=== PATIENT | male | born 1995 | race Caucasian/White ===

== ENCOUNTER → 2019-03-20 09:16 | Outpatient (CLI) | payer BC, SELFPAY ==
[2019-03-20 09:35] LABS: Basophils % 0.4 % (0.1-2.0); Eosinophils % 0.5 % (0.1-12.0); Hematocrit 46.4 % (42.0-52.0); Hemoglobin 15.5 g/dL (14.1-18.0); Lymphocytes # 0.8 K/mm3 (0.7-4.5); Lymphocytes % 15.5 % (10-50); Mean Corpuscular HGB Conc 33.5 g/dL (31.8-35.4); Mean Corpuscular Hemoglobin 34.5 pg (27.0-31.2); Mean Corpuscular Volume 102.8 fl (80-94); Mean Platelet Volume 7.7 fl (7.4-10.4); Monocytes # 0.5 K/mm3 (0.1-1.0); Monocytes % 9.9 % (1.7-9.3); Neutrophils # 3.9 K/mm3 (1.8-7.8); Neutrophils % 73.7 % (37.0-80.0); Platelet Count 176 K/mm3 (142-424); Red Blood Count 4.51 M/mm3 (4.60-6.20); Red Cell Distribution Width 12.8 % (11.5-17.5); White Blood Count 5.2 K/mm3 (4.8-10.8)
[2019-03-20 09:50] LABS: Alanine Aminotransferase 61 U/L (12-78); Albumin Level 4.9 gm/dL (3.4-5.0); Albumin/Globulin Ratio 1.3 (1.1-1.8); Alkaline Phosphatase 69 U/L (46-116); Anion Gap 16.5 mEq/L (5-15); Aspartate Amino Transferase 40 U/L (15-37); Bilirubin,Total 0.7 mg/dL (0.2-1.0); Blood Urea Nitrogen 5 mg/dL (7-18); Calcium 9.5 mg/dL (8.5-10.1); Carbon Dioxide 25 mmol/L (21.0-32.0); Chloride 101 mmol/L (98-107); Creatinine,Serum 0.83 mg/dL (0.70-1.30); Estimated Glomerular Filt Rate 116 ml/min (>60); Free Thyroxine Index 2.4 ug/dL (5.93-13.13); GFR (African American) 140 ML/MIN (>60); Globulin 3.9 gm/dl (1.3-3.2); Glucose 96 mg/dL (74-106); Potassium 4.5 mmoL/L (3.5-5.1); Sodium 138 mmol/L (136-145); T4 (Thyroxine) 7.2 ug/dl (4.7-13.3); Total Protein,Serum 8.8 gm/dL (6.4-8.2); Triiodothryronine (T3) Uptake 33 % (31-39)
== END ==
PROVIDERS: Visit Provider Internal Medicine Adolescent Medicine
DX: F41.0 Panic disorder [episodic paroxysmal anxiety] (principal); R00.2 Palpitations; R51 Headache
CPT/HCPCS: 36415; 80053; 83735; 84436; 84443; 84479; 85025

== ENCOUNTER 2020-09-20 11:22 | Inpatient (IN) | payer BC, SELFPAY ==
[2020-09-20] VITALS (27 sets, daily range): BP systolic 119–166; BP diastolic 65–89; PULSE 77–125; RESP 14–21; TEMP 36.4–43; O2SAT 95–100; BMI 20.9; BMI 19.5
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
[2020-09-20 11:41] LABS: Basophils % 1.1 % (0.1-2.0); Eosinophils % 0.6 % (0.1-12.0); Hematocrit 45.8 % (42.0-52.0); Hemoglobin 14.9 g/dL (14.1-18.0); Lymphocytes # 0.9 K/mm3 (0.7-4.5); Lymphocytes % 30.7 % (10-50); Mean Corpuscular HGB Conc 32.7 g/dL (31.8-35.4); Mean Corpuscular Hemoglobin 34.7 pg (27.0-31.2); Mean Corpuscular Volume 106.3 fl (80-94); Mean Platelet Volume 7.8 fl (7.4-10.4); Monocytes # 0.2 K/mm3 (0.1-1.0); Neutrophils # 1.8 K/mm3 (1.8-7.8); Neutrophils % 59.6 % (37.0-80.0); Platelet Count 185 K/mm3 (142-424); Red Blood Count 4.31 M/mm3 (4.60-6.20); Red Cell Distribution Width 13.1 % (11.5-17.5)
[2020-09-20 11:42] LABS: Chloride 103 mmol/L (98-107)
[2020-09-20 11:43] LABS: Potassium 3.8 mmoL/L (3.5-5.1); Sodium 142 mmol/L (136-145)
[2020-09-20 11:45] LABS: Alanine Aminotransferase 55 U/L (12-78); Albumin Level 4.9 g/dl (3.5-5.0); Albumin/Globulin Ratio 1.7 (1.1-1.8); Alkaline Phosphatase 88 U/L (38-126); Anion Gap 18.8 mEq/L (5-15); Aspartate Amino Transferase 85 U/L (17-59); Bilirubin,Total 0.4 mg/dl (0.2-1.3); Blood Urea Nitrogen 5 mg/dl (9-20); Calcium 8.5 mg/dl (8.4-10.2); Carbon Dioxide 24 mmol/L (22.0-30.0); Creatinine Clearance Estimated 138 mL/min (50-200); Estimated Glomerular Filt Rate 120 ml/min (>60); GFR (African American) 145 ML/MIN (>60); Globulin 2.9 g/dL (1.3-3.2); Glucose 103 mg/dl (74-100); Total Protein,Serum 7.8 g/dl (6.3-8.2)
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
[2020-09-20 11:58] LABS: Microscopic, Urine URINE MICROSCOPIC (MICROSCOPIC)
--- NOTE | 2020-09-20 11:59 | PC.NURSE ---
Pt to rad
[2020-09-20 12:01] LABS: Ethyl Alcohol 473 mg/dl (0-10)
--- NOTE | 2020-09-20 12:02 | PC.NURSE ---
ETOH level is 473 and called to [facility], [employer]
[2020-09-20 12:05] LABS: Appearance,Urine CLEAR (Clear); Bilirubin,Urine Negative (Negative); Blood, Urine Negative (Negative); Color,Urine YELLOW (Yellow); Glucose,Urine (UA) Negative (Negative); Ketones,Urine Negative (Negative); Leukocyte Esterase,Urine Negative (Negative); Nitrate,Urine Negative (Negative); Protein,Urine Negative (Negative); Urobilinogen,Urine 0.2 EU/dl (0.2)
[2020-09-20 12:16] LABS: Squamous Epithelial Cell,Urine Occasional #/hpf (0-5)
[2020-09-20 12:17] LABS: Benzodiazepines Screen,Urine Negative ng/ml (<200)
[2020-09-20 12:18] LABS: Amphetamine/Metha Screen,Urine Negative ng/ml (<1000)
[2020-09-20 12:19] LABS: Barbiturates Screen,Urine Negative ng/ml (<200); Methadone Screen,Urine Negative ng/ml (<300)
[2020-09-20 12:20] LABS: Cannabinoid Screen,Urine Negative ng/ml (<50); Cocaine Screen,Urine Negative ng/ml (<300)
[2020-09-20 12:21] LABS: Opiate Screen,Urine Negative ng/ml (<300)
[2020-09-20 12:22] LABS: Phencyclidine Screen,Urine Negative ng/ml (<25)
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
--- NOTE | 2020-09-20 13:11 | PC.NURSE ---
Pt returned from rad. LEYVA at bedside doing doppler on pt's leg.
--- NOTE | 2020-09-20 13:43 | PC.NURSE ---
Dr Ray speaking with Dr Lara
--- NOTE | 2020-09-20 13:55 | PC.NURSE ---
dr Ray spoke with Dr Alvarez she is calling Dr Barrera to discuss possible admission
--- NOTE | 2020-09-20 14:00 | PC.NURSE ---
Dr Bruce almendarez.
--- NOTE | 2020-09-20 14:06 | PC.NURSE ---
Dr lloyd returned call
[2020-09-20 14:41] LABS: Coronavirus 19 IgG Antibody Negative (Negative); Coronavirus 19 IgM Antibody Negative (Negative)
--- NOTE | 2020-09-20 15:08 | PC.NURSE ---
While adjusting pt's knee immobilizer pt states he is unable to move his toes. Pt states he is not able to move his foot either. notified
--- NOTE | 2020-09-20 15:11 | PC.NURSE ---
Dr Ray speaking with Dr Lara
--- NOTE | 2020-09-20 15:14 | PC.NURSE ---
Dr guzman speaking with Dr Ray again.
--- NOTE | 2020-09-20 16:12 | PC.NURSE ---
Dr Lara at bedside. Surgery team called in.
--- NOTE | 2020-09-20 16:16 | PC.NURSE ---
Called in surgery team at this time. Spoke with Mable Parrish, and Sheila from OR via telephone.
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
--- NOTE | 2020-09-20 16:28 | PC.NURSE ---
Pt complaining of more pain at this time MD aware, he will be ordering more meds.
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
--- NOTE | 2020-09-20 17:26 | P.PN_ITS ---
[facility] Anesthesia Checklist - Structural Data Admitted From: Emergency Dept Planned Operative Procedure/s: fasciotomy rle Consent for Planned Operative Procedure(s) Verified: Yes - Airway Assessment C-Spine Mobility Assessed: Yes TMJ Mobility Assessed: Yes Dentition: Good Dentition - Neurological Assessment Level of Consciousness: Awake, Alert, Appropriate - Anesthesia Plan Anesthesia Risk discussed: Yes Anesthesia Plan: Verified ASA Class: II Anesthesia Type: General [facility] History I have reviewed the patient's past medical history: Yes Medical History: Denies:: Cancer, Chronic Obstructive Pulmonary Disease (COPD), Diabetes Mellitus Type 1, Diabetes Mellitus Type 2, MRSA *Have you ever received a pneumonia vaccine?: No *Have you received a flu vaccine this season?: No Anesthesia experience/problems:: none Amputation: No Fractures: No - *Social History Smoking Status: Never smoker Alcohol Intake: current Alcohol Intake Frequency:: a few times a week Substance Use Type: denies use *Occupational Status:: employed *Travel in the last 8 weeks: None Family Hx:: Non-contributory
[2020-09-20 18:08] LABS: Microscopic,Cath URINE MICROSCOPIC (MICROSCOPIC)
[2020-09-20 18:22] LABS: Appearance,Urine/Cath CLEAR (Clear); Bilirubin,Cath Negative (Negative); Blood, Urine/Cath Negative (Negative); Color,Urine/Cath YELLOW (Yellow); Glucose,Urine/Cath (UA) Negative (Negative); Ketones,Urine/Cath TRACE (Negative); Leukocyte Esterase,Cath Negative (Negative); Nitrate,Cath Negative (Negative); Protein,Urine/Cath Negative (Negative); Specific Gravity, Urine/Cath 1.015 (1.005-1.030); Urobilinogen,Cath 0.2 EU/dl (0.2)
[2020-09-20 18:28] LABS: Amorphous Sediment,Ur/Cath Trace /lpf
--- NOTE | 2020-09-20 19:16 | HMH.ANESI ---
[facility] Anesthesia Record Part I Intake, IV Amount: 1,500 Estimated blood loss (mL): 300 Urine output (mL): 250 Blood Pressure: 150/81 SaO2: 97 Pulse Rate: 114 Respiratory Rate: 14 Temperature: 98.1 F Patient is:: Awake, Stable Stable to PACU at:: 19:15
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
[2020-09-20 19:53] LABS: Magnesium 2.1 mg/dl (1.6-2.3); Phosphorous 4.3 mg/dl (2.5-4.5)
[2020-09-20 20:02] LABS: Barbiturates Screen,Urine Negative ng/ml (<200); Benzodiazepines Screen,Urine Negative ng/ml (<200)
[2020-09-20 20:03] LABS: Amphetamine/Metha Screen,Urine Negative ng/ml (<1000); Cannabinoid Screen,Urine Negative ng/ml (<50)
[2020-09-20 20:04] LABS: Cocaine Screen,Urine Negative ng/ml (<300)
--- NOTE | 2020-09-20 20:04 | PC.NURSE ---
patient up to floor from surgery.
[2020-09-20 20:05] LABS: Methadone Screen,Urine Negative ng/ml (<300); Opiate Screen,Urine Positive ng/ml (<300)
[2020-09-20 20:06] LABS: Phencyclidine Screen,Urine Negative ng/ml (<25)
--- NOTE | 2020-09-20 20:07 | XR_ITS ---
PROCEDURE: XR KNEE RT 2V CLINICAL INDICATION: s/p ex-fix (to see femoral pins) Follow-up external fixation COMPARISON: CR XR TIBIA FIBULA RT 2V from 09/20/2020 FINDINGS: Comminuted inverted v-shaped fracture noted at the proximal tibia extending into the articular surface proximally at the interspinous region. Minimal impaction of the fracture fragments. There is a hematoma fat level within the suprapatellar region. The external fixators are in good position along the distal shaft of the femur. There are numerous skin clips along the proximal tibia. IMPRESSION: Good alignment status post external fixation comminuted proximal tibial fracture Dictated by: Isaac Bonilla MD 09/21/2020 08:44 Isaac Bonilla MD in OV 09/21/2020 08:44
[2020-09-20 20:21] LABS: Activated Partial Thrombo Time 24.5 seconds (23.6-34.0); INR 0.92 (0.9-1.1); Prothrombin Time 10.3 seconds (9.4-11.8)
[2020-09-21] VITALS (13 sets, daily range): BP systolic 110–139; BP diastolic 64–82; PULSE 70–110; RESP 15–20; TEMP 36.6–37.1; O2SAT 95–100; BMI 19.4
--- NOTE | 2020-09-21 03:34 | PC.NURSE ---
MD Barrera contacted early in shift for clarification of medications. Pt is A&O x4. CIWA score is currently 7. He denies any DT's at this time. Severe tremors are present, however, pt has history of tremors. Pt denies any LEON, hallucinations or sensitivities. BP remains stable. HR Tachy. Pt remains afebrile. He has rated his pain to RLE between 8-10 on EXHAUST TENDER scale. RLE elevated. Icepacks in place. DSG has been reinforced. Sanguineous drainage noted. Estimated blood loss after weighing is 249 per Rachel Radford RN. Medications administered per jan. Pt is using incentive spirometer. Call light within reach. Will continue to monitor.
--- NOTE | 2020-09-21 04:51 | PC.NURSE ---
Forehead. Contusion with abrasion
--- NOTE | 2020-09-21 06:00 | PC.NURSE ---
Additional blood loss estimated at 255 ml per Rachel Radford RN
--- NOTE | 2020-09-21 06:17 | PC.NURSE ---
Notified MD Barrera of blood loss. New orders: Type and crossmatch. Place 3 Units of blood on hold
[2020-09-21 06:40] LABS: Chloride 95 mmol/L (98-107); Potassium 4.3 mmoL/L (3.5-5.1); Sodium 129 mmol/L (136-145)
[2020-09-21 06:43] LABS: Anion Gap 16.3 mEq/L (5-15); Blood Urea Nitrogen 5 mg/dl (9-20); Calcium 7.7 mg/dl (8.4-10.2); Carbon Dioxide 22 mmol/L (22.0-30.0); Creatinine Clearance Estimated 192 mL/min (50-200); Estimated Glomerular Filt Rate 167 ml/min (>60); GFR (African American) 202 ML/MIN (>60); Glucose 117 mg/dl (74-100)
[2020-09-21 06:44] LABS: Eosinophils % 0.3 % (0.1-12.0); Lymphocytes # 0.2 K/mm3 (0.7-4.5); Mean Corpuscular HGB Conc 34.1 g/dL (31.8-35.4); Mean Corpuscular Hemoglobin 35.6 pg (27.0-31.2); Mean Corpuscular Volume 104.4 fl (80-94); Mean Platelet Volume 8.1 fl (7.4-10.4); Monocytes # 0.3 K/mm3 (0.1-1.0); Monocytes % 5.3 % (1.7-9.3); Neutrophils # 4.9 K/mm3 (1.8-7.8); Neutrophils % 91.3 % (37.0-80.0); Red Cell Distribution Width 13.4 % (11.5-17.5)
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
[2020-09-21 07:05] LABS: MANUAL DIFFERENTIAL MANUAL DIFFERENTIAL (MANUAL DIFF)
[2020-09-21 07:11] LABS: Hemoglobin 10.5 g/dL (14.1-18.0); Red Blood Count 2.94 M/mm3 (4.60-6.20); White Blood Count 5.4 K/mm3 (4.8-10.8)
[2020-09-21 07:12] LABS: Hematocrit 30.7 % (42.0-52.0); Platelet Count 141 K/mm3 (142-424)
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
--- NOTE | 2020-09-21 08:19 | P.PN_ITS ---
[facility] Anesthesia Record Part II Discharge Time: 19:45 Destination: floor PACU nurse assessment reviewed?: Yes Patient Condition:: Good Anesthesia Complications:: None Swallowing reflex intact?: Yes Cyanosis?: No Blood Pressure: 139/82 Pulse Rate: 98 Temperature: 98.7 F Mental Status: Alert & Oriented Pain level:: 8 Nausea and/or vomitting:: None Intake, IV Amount: 1,500
[2020-09-21 08:28] LABS: Lymphocytes % 4 % (10-50); Monocytes % 2 % (2-9); Neutrophils % 92 % (42-76); Platelet Estimate Normal; RBC Morphology Normal; Total Cells Counted 100
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
[2020-09-21 09:12] LABS: Magnesium 2.2 mg/dl (1.6-2.3)
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
--- NOTE | 2020-09-21 18:22 | PC.NURSE ---
pt has done ok today. vitals have all been stable. pt afebrile. his dressing to RLE has been reenforced multiple times throughout shift d/t bleeding. md guzman is aware. pt id very well with PT today. pt reports he has a high pain tolerance, although rating it a 8-10 on number scale. pt slept a lot today. carbajal draining yellow urine. CIWA scores have been 0800-7, 1200-7, 1600-5. pt did voice he was having itching symptoms this afternoon, he states it was tolerable but wanted something for itching still. md rousseau paged and order Benadryl 25mg q6hr PRN for itching. vss. will cont. to monitor.
[2020-09-22] VITALS (23 sets, daily range): BP systolic 100–152; BP diastolic 52–94; PULSE 67–131; RESP 12–26; TEMP 36.6–37; O2SAT 97–100
[2020-09-22 06:40] LABS: Basophils % 0.3 % (0.1-2.0); Eosinophils % 1.1 % (0.1-12.0); Hematocrit 26.6 % (42.0-52.0); Hemoglobin 8.8 g/dL (14.1-18.0); Lymphocytes # 0.7 K/mm3 (0.7-4.5); Lymphocytes % 24.8 % (10-50); Mean Corpuscular HGB Conc 32.9 g/dL (31.8-35.4); Mean Corpuscular Hemoglobin 35.7 pg (27.0-31.2); Mean Corpuscular Volume 108.7 fl (80-94); Mean Platelet Volume 8.5 fl (7.4-10.4); Monocytes # 0.2 K/mm3 (0.1-1.0); Monocytes % 8.1 % (1.7-9.3); Neutrophils # 1.9 K/mm3 (1.8-7.8); Neutrophils % 65.7 % (37.0-80.0); Platelet Count 95 K/mm3 (142-424); Red Blood Count 2.45 M/mm3 (4.60-6.20); Red Cell Distribution Width 13.3 % (11.5-17.5); White Blood Count 2.9 K/mm3 (4.8-10.8)
[2020-09-22 06:44] LABS: Chloride 108 mmol/L (98-107); Potassium 3.8 mmoL/L (3.5-5.1); Sodium 137 mmol/L (136-145)
[2020-09-22 06:47] LABS: Anion Gap 6.8 mEq/L (5-15); Blood Urea Nitrogen 7 mg/dl (9-20); Calcium 7.9 mg/dl (8.4-10.2); Carbon Dioxide 26 mmol/L (22.0-30.0); Creatinine Clearance Estimated 170 mL/min (50-200); Estimated Glomerular Filt Rate 140 ml/min (>60); GFR (African American) 169 ML/MIN (>60); Glucose 99 mg/dl (74-100)
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
--- NOTE | 2020-09-22 08:09 | PC.NURSE ---
Pt is A&Ox4 and has turned in bed slightly and repositioned with staff assist x1. Pt has c/o pain severl times t/o shift, medicated per JAN. RLE remains elevated with ice packs x2, and changed out reinforcements dressings 2x this shift. d/t bleeding. Borders marked on Surgical dressing. Gauze pads and abd pads have been saturated with each dressing change. CIWSs continue, < 8 this shift. Pt denies any Nausea or SOA. IPCS to LLE. NSR, SInus tach on tele. Nichole cath in place draining clear, light ylw urine. VSS, call light within reach.
--- NOTE | 2020-09-22 12:10 | PC.NURSE ---
off floor for surgery
--- NOTE | 2020-09-22 14:59 | P.PN_ITS ---
[facility] Anesthesia Record Part I Intake, IV Amount: 800 Estimated blood loss (mL): 25 Urine output (mL): 550 Blood Products used (#): none Blood Pressure: 152/81 SaO2: 100 Pulse Rate: 126 Respiratory Rate: 12 Temperature: 98.6 F Patient is:: Awake, Drowsy, Nasal O2, Stable Stable to PACU at:: 14:53
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
[2020-09-22 16:18] LABS: Hematocrit 25.5 % (42.0-52.0); Hemoglobin 8.4 g/dL (14.1-18.0)
--- NOTE | 2020-09-22 17:52 | PC.NURSE ---
Pt s/p irrigation and debridement today. External fixator in place to RLE. Dressing is currently clean, dry and intact. Ice packs in place. Brace to rt wrist is off, okay per Dr Barrera. He would like pt to sleep with brace on but otherwise ok to remove. Nichole is to bedside draining clear yellow urine. Benedryl given x1 today for itching. He's been sinus tach on telemetry w/HR running up into 130's at times. Pt still unable to feel sensation in rle toes. Appetite is good. PRN pain meds administered as need with pt reporting relief. Tremors noted which patient states is his baseline. Will continue to monitor.
[2020-09-23] VITALS (29 sets, daily range): BP systolic 92–146; BP diastolic 44–84; PULSE 70–115; RESP 15–20; TEMP 35.6–37.3; O2SAT 93–100; BMI 19.8
--- NOTE | 2020-09-23 05:17 | PC.NURSE ---
Pt is A&Ox4 and has c/o pain to RLE and medicated per MAR 3x with good relief. Pt also c/o severe itching to face, neck, and arms. Pt had received Benadryl PO 1.5 hr prior with no relief. It was also noted, that pt was sweating, although afebrile. Tremors in BUE, and some shakiness to LLE. Pt appears slightly anxious for a CIWA score of 10. Ativan IV was administered per MAR with good relief and pt has denied any itching, not anxious, and sweating improved. Pt was able to rest very well t/o the night. Scant bleeding noted to posterior RLE, chux changed 2x this shift. Ice packs refilled and replaced 2x this shift. Minimal toes movement to r foot, pt does note increase in sensation to foot. 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 IPCS to LLE. ABD is soft, active and pt denies any N/V and ate 100% of pizza and dinner mother brought from [facility] [employer]. Lungs CTA, pt has used IS and goal met of 1500ml. SaO2 > 97% t/o shift. Nichole cath in place draining clear, ylw and pt has voided 2,600ml thus far. NSR/Sinus Tach on tele. Call light within reach.
[2020-09-23 06:46] LABS: Basophils % 0.3 % (0.1-2.0); Eosinophils % 0.8 % (0.1-12.0); Lymphocytes # 0.7 K/mm3 (0.7-4.5); Lymphocytes % 18.7 % (10-50); Mean Corpuscular HGB Conc 33.5 g/dL (31.8-35.4); Mean Corpuscular Hemoglobin 35.7 pg (27.0-31.2); Mean Corpuscular Volume 106.8 fl (80-94); Mean Platelet Volume 8.2 fl (7.4-10.4); Monocytes # 0.3 K/mm3 (0.1-1.0); Monocytes % 7.7 % (1.7-9.3); Neutrophils # 2.9 K/mm3 (1.8-7.8); Neutrophils % 72.5 % (37.0-80.0); Platelet Count 99 K/mm3 (142-424); Red Blood Count 2.06 M/mm3 (4.60-6.20); Red Cell Distribution Width 13.1 % (11.5-17.5)
--- NOTE | 2020-09-23 06:46 | P.PN_ITS ---
[facility] Anesthesia Record Part II Discharge Time: 15:23 Destination: Medical Surgical Department PACU nurse assessment reviewed?: Yes Patient Condition:: Good Anesthesia Complications:: None Swallowing reflex intact?: Yes Cyanosis?: No Blood Pressure: 146/84 Pulse Rate: 96 Temperature: 98.6 F Mental Status: Alert & Oriented Pain level:: 0 Nausea and/or vomitting:: None Intake, IV Amount: 0 (Normovolemic)
[2020-09-23 06:55] LABS: Chloride 107 mmol/L (98-107); Potassium 3.4 mmoL/L (3.5-5.1); Sodium 135 mmol/L (136-145)
[2020-09-23 06:58] LABS: Alanine Aminotransferase 23 U/L (12-78); Albumin Level 3.1 g/dl (3.5-5.0); Albumin/Globulin Ratio 1.3 (1.1-1.8); Alkaline Phosphatase 41 U/L (38-126); Anion Gap 7.4 mEq/L (5-15); Aspartate Amino Transferase 41 U/L (17-59); Bilirubin,Total 0.5 mg/dl (0.2-1.3); Blood Urea Nitrogen 4 mg/dl (9-20); Calcium 7.8 mg/dl (8.4-10.2); Carbon Dioxide 24 mmol/L (22.0-30.0); Creatinine Clearance Estimated 170 mL/min (50-200); Estimated Glomerular Filt Rate 140 ml/min (>60); GFR (African American) 169 ML/MIN (>60); Globulin 2.3 g/dL (1.3-3.2); Glucose 103 mg/dl (74-100); Total Protein,Serum 5.4 g/dl (6.3-8.2)
[2020-09-23 06:59] LABS: Magnesium 2.2 mg/dl (1.6-2.3)
[2020-09-23 07:10] LABS: Hemoglobin 7.4 g/dL (14.1-18.0)
--- NOTE | 2020-09-23 07:56 | PC.NURSE ---
Lab notified this RN of critical Hgb & Hct @ 0709, this RN and Tristin Arreola RN notified Dr. Smith in person on labs @ 0787 and ordered to have 2 units of the PRBC that are on hold transfused.
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
[2020-09-23 16:22] LABS: Hematocrit 29.3 % (42.0-52.0)
[2020-09-23 16:33] LABS: Hemoglobin 9.9 g/dL (14.1-18.0)
--- NOTE | 2020-09-23 18:16 | PC.NURSE ---
pt has done well today. he ambulated with walker and three staff members and remained non-weight bearing to his right leg. pt sat up in chair most of shift, he had a shower with staff assistance. he has had pain t/o shift to his right leg, medicated per mar. carbajal draining an adequate amount of yellow urine. dressing to right leg has been having serosanguineous drainage noted and reenforced t/o shift as needed. pt received two units of prbc this shift and tolerated well. vss. will cont. to monitor.
[2020-09-24] VITALS (24 sets, daily range): BP systolic 114–150; BP diastolic 54–89; PULSE 67–125; RESP 12–20; TEMP 36.7–37.8; O2SAT 96–100; BMI 20.5
--- NOTE | 2020-09-24 | XR_ITS ---
PROCEDURE: XR TIBIA FIBULA RT 2V CLINICAL INDICATION: ORIF COMPARISON: No exams were available for comparison FINDINGS: Fluoroscopy time: 4 minutes and 2 seconds Multiple images are submitted with the C-arm during ORIF the comminuted proximal tibial fracture with intra-articular extension. Final images show good alignment with interval placement of a lateral and posterior bone plate with multiple cortical screws. IMPRESSION: Good alignment status post ORIF tibial Dictated by: Isaac Bonilla MD 09/24/2020 17:03 Isaac Bonilla MD in [facility] 09/24/2020 17:03
[2020-09-24 06:14] LABS: Basophils % 0.1 % (0.1-2.0); Eosinophils # 0.1 K/mm3 (0.0-0.4); Eosinophils % 1.4 % (0.1-12.0); Hematocrit 28.8 % (42.0-52.0); Hemoglobin 9.5 g/dL (14.1-18.0); Lymphocytes # 0.6 K/mm3 (0.7-4.5); Lymphocytes % 15.6 % (10-50); Mean Corpuscular HGB Conc 33.1 g/dL (31.8-35.4); Mean Corpuscular Hemoglobin 33.2 pg (27.0-31.2); Mean Corpuscular Volume 100.2 fl (80-94); Mean Platelet Volume 8.2 fl (7.4-10.4); Monocytes # 0.4 K/mm3 (0.1-1.0); Monocytes % 9.4 % (1.7-9.3); Neutrophils # 2.8 K/mm3 (1.8-7.8); Neutrophils % 73.5 % (37.0-80.0); Platelet Count 117 K/mm3 (142-424); Red Blood Count 2.87 M/mm3 (4.60-6.20); White Blood Count 3.8 K/mm3 (4.8-10.8)
[2020-09-24 06:26] LABS: Chloride 113 mmol/L (98-107); Potassium 3.6 mmoL/L (3.5-5.1); Sodium 139 mmol/L (136-145)
[2020-09-24 06:29] LABS: Anion Gap 9.6 mEq/L (5-15); Blood Urea Nitrogen 2 mg/dl (9-20); Carbon Dioxide 20 mmol/L (22.0-30.0); Creatinine Clearance Estimated 203 mL/min (50-200); Estimated Glomerular Filt Rate 167 ml/min (>60); GFR (African American) 202 ML/MIN (>60)
[2020-09-24 06:30] LABS: Glucose 100 mg/dl (74-100)
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
--- NOTE | 2020-09-24 12:22 | SUR.OPER ---
From [id number] Dr Lara worked on suturing/closing the fasciatomy. After both sides of the right leg had been sutured/closed, Dr Lara made her first incision at 1159 to begin the ORIF. 1215: patient's mother notified that Dr Lara had finished with closing the fasciotomy and was now starting on repairing the fracture; starting on the ORIF. 1230: Dr Davis came into the room to observe and consult with Dr Lara concerning this patient. Dr Conrad donned a lead apron and satood at the back wall.
--- NOTE | 2020-09-24 15:57 | SUR.OPER ---
1553-family updated at this time
--- NOTE | 2020-09-24 16:38 | HMH.ANESI ---
[facility] Anesthesia Record Part I Intake, IV Amount: 3,500 Estimated blood loss (mL): 200 Urine output (mL): 800 Blood Pressure: 117/54 SaO2: 96 Pulse Rate: 106 Respiratory Rate: 12 Temperature: 100 F Patient is:: Awake, Stable Stable to PACU at:: 16:35
--- NOTE | 2020-09-24 16:39 | XR_ITS ---
PROCEDURE: XR KNEE RT 2V CLINICAL INDICATION: s/p orif right tibial plateau Follow-up orif COMPARISON: CR XR KNEE RT 2V from 09/20/2020 XA XR TIBIA FIBULA RT 2V from 09/24/2020 FINDINGS: Status post ORIF tibial plateau fracture. Lateral bone plate is present at the proximal tibia with multiple cortical screws. Posterior bone plate is also noted. There is good alignment of the fracture fragments. There is postsurgical gas and an air-fluid level within the suprapatellar region. Lucencies are noted in the distal femur from prior external fixator. The joint spaces are well-preserved. No significant degenerative/arthritic changes. No erosive changes evident. Other findings:None. IMPRESSION: Good alignment status post ORIF tibial plateau fracture Dictated by: Isaac Bonilla MD 09/24/2020 16:54 Isaac Bonilla MD in [facility] 09/24/2020 16:54
[2020-09-24 16:56] LABS: Hematocrit 26.7 % (42.0-52.0); Hemoglobin 8.7 g/dL (14.1-18.0)
--- NOTE | 2020-09-24 16:57 | PC.NURSE ---
1642-radiology at bedside 1648-lab at bedside
--- NOTE | 2020-09-24 17:10 | PC.NURSE ---
4919-attempted to call report at this time, awaiting on 2nd floor RN to call back for report, vseric, pt stable
--- NOTE | 2020-09-24 17:21 | PC.NURSE ---
1721-pt drinking water at this time w/out difficulty
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
--- NOTE | 2020-09-24 18:09 | PC.NURSE ---
1728-detailed report called to NOY Brody 1731-pt transported to 2nd floor room 217 via hospital bed with med rails up and left in care of NOY Brody with bed locked in lowest position, vss, pt stable, family at bedside
--- NOTE | 2020-09-24 20:33 | PC.NURSE ---
PATIENT ARRIVED BACK ON FLOOR AT 1735. PATIENT A&O X4, LUNG CLEAR. PATIENT CONTINUED TO HAVE NO FEELING IN RIGHT LOWER EXTREMITY. THIS RN INSTRUCTED PATIENT TO USE HIS INCENTIVE SPIROMETER EVERY HOUR. PATIENT VERBALIZED AN UNDERSTANDING AND DEMONSTRATE HOW TO USE. AT 1850 VITAL SIGN ASSESSMENT, PATIENT COMPLAINED OF PAIN, THIS RN APPLIED PRESSURE ON RIGHT TOES, PATIENT EXPRESSED EXTREME PAIN. THIS RN UNLATCHED KNEE BRACE. PER NOY CONNELLY, OKAY TO REMOVE WHEN PATIENT IS IN BED. PATIENT STATED THAT REMOVAL OF KNEE BRACE PROVIDED SOME RELIEF. PATIENT ATE JELLO AND DRANK WATER FOR FIRST ORAL INTAKE, TOLERATED WELL. PATIENT'S MOTHER PROVIDED DAIRY GUZMAN FOOD AND PATIENT TOLERATED WELL. PATIENT CONTINUES TO HAVE TACHYCARDIA AND SHAKES. NO NEW CONCERNS AT THIS TIME.
--- NOTE | 2020-09-24 20:50 | PC.NURSE ---
Patient has brace to r wrist, off at this time. Brace to r leg ok to be off at while in bed. dressing/cast to right lower extremity noted from upper thigh to toes. unable to visualize wounds.
[2020-09-25] VITALS (8 sets, daily range): BP systolic 118–153; BP diastolic 58–87; PULSE 91–130; RESP 16–24; TEMP 36.9–37.7; O2SAT 96–100; BMI 19.6
--- NOTE | 2020-09-25 02:29 | PC.NURSE ---
Pt has ice packs placed on the inside and outside of R lower extremity.
--- NOTE | 2020-09-25 03:57 | PC.NURSE ---
pt was able to stand and pivot to chair with minimal assist and then stand and pivot to the commode with minimal assist. foot elevated on shower stool while attempting to have a bm
--- NOTE | 2020-09-25 04:10 | PC.NURSE ---
Pt has been sitting upright in his bed all evening and this morning as well. pt has yet to sleep. he had the brace off of his rle most of the evening, but was put back on to use rr. after pivoting to chair and commode, the brace remains in place at this time. brace on r wrist remains off. pt has complained of pain most of the shift. states that dilaudid only helps with the pain for approx 20 mins. medication has been administered when available per jan. pt is very pleasant in interactions and conversation with staff. Appears tired, but has not voiced being tired. lung sounds remain clear but diminished, bowel sounds are hypo active. pt was unable to have a bm this shift. pt alerted to the potential GI side effects of narcotics. nad noted. no new skin issues noted at this time. will continue to monitor.
[2020-09-25 06:28] LABS: Basophils % 0.2 % (0.1-2.0); Eosinophils % 0.3 % (0.1-12.0); Hematocrit 27.4 % (42.0-52.0); Hemoglobin 9.3 g/dL (14.1-18.0); Lymphocytes # 0.6 K/mm3 (0.7-4.5); Lymphocytes % 10.7 % (10-50); Mean Corpuscular HGB Conc 33.8 g/dL (31.8-35.4); Mean Corpuscular Hemoglobin 33.9 pg (27.0-31.2); Mean Corpuscular Volume 100.2 fl (80-94); Mean Platelet Volume 8.4 fl (7.4-10.4); Monocytes # 0.7 K/mm3 (0.1-1.0); Monocytes % 12.6 % (1.7-9.3); Neutrophils % 76.2 % (37.0-80.0); Platelet Count 162 K/mm3 (142-424); Red Blood Count 2.74 M/mm3 (4.60-6.20); White Blood Count 5.3 K/mm3 (4.8-10.8)
[2020-09-25 06:30] LABS: Chloride 107 mmol/L (98-107); Potassium 3.1 mmoL/L (3.5-5.1); Sodium 133 mmol/L (136-145)
[2020-09-25 06:33] LABS: Alanine Aminotransferase 16 U/L (12-78); Albumin Level 3.1 g/dl (3.5-5.0); Albumin/Globulin Ratio 1.2 (1.1-1.8); Alkaline Phosphatase 47 U/L (38-126); Anion Gap 8.1 mEq/L (5-15); Aspartate Amino Transferase 40 U/L (17-59); Bilirubin,Total 0.7 mg/dl (0.2-1.3); Blood Urea Nitrogen 3 mg/dl (9-20); Calcium 7.7 mg/dl (8.4-10.2); Carbon Dioxide 21 mmol/L (22.0-30.0); Creatinine Clearance Estimated 194 mL/min (50-200); Estimated Glomerular Filt Rate 167 ml/min (>60); GFR (African American) 202 ML/MIN (>60); Globulin 2.6 g/dL (1.3-3.2); Glucose 118 mg/dl (74-100); Total Protein,Serum 5.7 g/dl (6.3-8.2)
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
--- NOTE | 2020-09-25 08:52 | PC.NURSE ---
spoke face to face with Dr Barrera about the amount of fluid the patient took in orally on my shift. 11,000. Dr Barrera implemented an 8000ml limit PER SHIFT. primary rn to be notified
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
--- NOTE | 2020-09-25 11:40 | XR_ITS ---
PROCEDURE: XR WRIST RT MIN 3V CLINICAL INDICATION: wrist pain Right wrist pain and bruising COMPARISON: CR XR HAND RT MIN 3V from 09/20/2020 FINDINGS: No fracture or dislocation. No lytic or blastic change. There is normal mineralization. The joint spaces are well-preserved. No significant degenerative/arthritic changes. No erosive changes evident. Other findings:None. IMPRESSION: No acute findings. Dictated by: Isaac Bonilla MD 09/25/2020 14:32 Isaac Bonilla MD in [place] 09/25/2020 14:32
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
--- NOTE | 2020-09-25 15:10 | PC.NURSE ---
REPORT FROM Fili GEORGE RN, SAVAGE CATH D/C AT THIS TIME, OUTPUT OF 250 MLS NOTED.
--- NOTE | 2020-09-25 16:08 | CARE MANAGER ---
Spoke with Dr. Lara and Dr. Barrera regarding patient's disposition. [facility] and [facility] does not have beds available until the end of next week possibly. Discussed also 's concern that with the patient being non-weight bearing on the right leg that the tolerance for therapy as well as what kind of therapy could be done may be limited. Discussed all this with patient's mother as he was taking a shower. We discussed the possibility of the patient going home. She does have hesitations as he may be alone part of the time. The bathroom is directly across from his bedroom. The living area is down a narrower hallway. We discussed DME that may help him adjust if he does have to go home. We also discussed outpatient PT vs. home health. She is going to relay information to the patient and discuss with MD later. Father will be in to see patient in the morning and not mother, but he can help make decision as well if needed. She will be back tomorrow afternoon. NOY Prince/LISAN, CM
--- NOTE | 2020-09-25 18:23 | P.PN_ITS ---
[facility] Anesthesia Record Part II Discharge Time: 16:45 Destination: Medical Surgical Department PACU nurse assessment reviewed?: Yes Patient Condition:: Good Anesthesia Complications:: None Swallowing reflex intact?: Yes Cyanosis?: No Blood Pressure: 134/69 Pulse Rate: 99 Temperature: 100 F Mental Status: Alert & Oriented Pain level:: 0 Nausea and/or vomitting:: None Intake, IV Amount: 0
[2020-09-26 04:00] VITALS: BP 137/73; PULSE 46; RESP 16; TEMP 37.3; O2SAT 100
[2020-09-26 05:00] VITALS: BMI 19.9
--- NOTE | 2020-09-26 06:31 | PC.NURSE ---
Pt is alert and oriented x4. Pt rested well this am with eyes closed. Pt c/o persistent pain to RLE. administered pain meds per MAR. States adequate pain relief upon reassessments. Tolerated RA well with no c/o SOA. Encouraged use of incentive spirometer while awake. Kept RLE elevated on pillows and in immobilizer while lying in bed. No edema noted. Adequate urine output noted. No BM thus far this shift. VSS. Remains safe. Call light within reach. Will continue to monitor.
[2020-09-26 07:12] LABS: Basophils % 0.3 % (0.1-2.0); Eosinophils # 0.1 K/mm3 (0.0-0.4); Hematocrit 27.3 % (42.0-52.0); Hemoglobin 8.7 g/dL (14.1-18.0); Lymphocytes # 0.8 K/mm3 (0.7-4.5); Lymphocytes % 16.2 % (10-50); Mean Corpuscular HGB Conc 32.1 g/dL (31.8-35.4); Mean Platelet Volume 8.1 fl (7.4-10.4); Monocytes # 0.7 K/mm3 (0.1-1.0); Monocytes % 14.6 % (1.7-9.3); Neutrophils # 3.4 K/mm3 (1.8-7.8); Neutrophils % 67.9 % (37.0-80.0); Platelet Count 244 K/mm3 (142-424); Red Blood Count 2.65 M/mm3 (4.60-6.20); Red Cell Distribution Width 18.4 % (11.5-17.5); White Blood Count 5.1 K/mm3 (4.8-10.8)
[2020-09-26 07:18] LABS: Chloride 112 mmol/L (98-107)
[2020-09-26 07:19] LABS: Potassium 3.6 mmoL/L (3.5-5.1); Sodium 137 mmol/L (136-145)
[2020-09-26 07:22] LABS: Anion Gap 9.6 mEq/L (5-15); Blood Urea Nitrogen 6 mg/dl (9-20); Carbon Dioxide 19 mmol/L (22.0-30.0); Creatinine Clearance Estimated 197 mL/min (50-200); Estimated Glomerular Filt Rate 167 ml/min (>60); GFR (African American) 202 ML/MIN (>60); Glucose 103 mg/dl (74-100)
[2020-09-26 07:28] LABS: Calcium 8.5 mg/dl (8.4-10.2)
[2020-09-26 08:00] VITALS: BP 124/68; PULSE 72; RESP 18; TEMP 37; O2SAT 98
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
[2020-09-26 16:00] VITALS: BP 112/66; PULSE 90; RESP 17; TEMP 36.7; O2SAT 96
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
[2020-09-26 19:46] VITALS: BP 119/59; PULSE 84; RESP 16; TEMP 37.3; O2SAT 100
[2020-09-27 04:00] VITALS: BP 131/71; PULSE 70; RESP 14; TEMP 37.3; O2SAT 99
--- NOTE | 2020-09-27 04:25 | PC.NURSE ---
Pt is alert and oriented x4. pt noted restless for majority of shift. No acute changes noted from previous shift. c/o persistent pain to right leg. Administered pain meds per MAR. Upon reassessment pt states some relief. Repositioned RLE in bed on pillows and applied ice packs to ANAHI. Pt also c/o generalized pruritus this shift. Administered Benadryl per MAR. Pt states adequate relief upon reassessment. Pt able to slightly move digits to RLE when asked. Also able to feel some sensations of light touch to RLE digits. No edema noted. SCUDS to LLE. VSS. Remains safe. Call light within reach. Will continue to monitor.
[2020-09-27 04:54] VITALS: BMI 19.4
[2020-09-27 07:20] LABS: Chloride 111 mmol/L (98-107); Potassium 3.4 mmoL/L (3.5-5.1); Sodium 136 mmol/L (136-145)
[2020-09-27 07:21] LABS: Basophils % 0.4 % (0.1-2.0); Eosinophils # 0.1 K/mm3 (0.0-0.4); Eosinophils % 1.8 % (0.1-12.0); Hematocrit 27.4 % (42.0-52.0); Hemoglobin 8.8 g/dL (14.1-18.0); Lymphocytes # 0.7 K/mm3 (0.7-4.5); Lymphocytes % 15.3 % (10-50); Mean Corpuscular Hemoglobin 32.5 pg (27.0-31.2); Mean Corpuscular Volume 101.8 fl (80-94); Mean Platelet Volume 8.3 fl (7.4-10.4); Monocytes # 0.5 K/mm3 (0.1-1.0); Monocytes % 10.2 % (1.7-9.3); Neutrophils # 3.3 K/mm3 (1.8-7.8); Neutrophils % 72.3 % (37.0-80.0); Platelet Count 334 K/mm3 (142-424); White Blood Count 4.6 K/mm3 (4.8-10.8)
[2020-09-27 07:23] LABS: Anion Gap 10.4 mEq/L (5-15); Blood Urea Nitrogen 6 mg/dl (9-20); Calcium 8.8 mg/dl (8.4-10.2); Carbon Dioxide 18 mmol/L (22.0-30.0); Creatinine Clearance Estimated 192 mL/min (50-200); Estimated Glomerular Filt Rate 167 ml/min (>60); GFR (African American) 202 ML/MIN (>60); Glucose 152 mg/dl (74-100)
[2020-09-27 08:00] VITALS: BP 130/60; PULSE 64; RESP 17; TEMP 36.9; O2SAT 100
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
[2020-09-27 14:58] VITALS: BP 115/69; PULSE 93; RESP 19; TEMP 36.9; O2SAT 100
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
[2020-09-27 19:42] VITALS: BP 122/66; PULSE 90; RESP 17; TEMP 36.8; O2SAT 100
[2020-09-28 03:47] VITALS: BP 118/64; PULSE 94; RESP 16; TEMP 37.8; O2SAT 100
--- NOTE | 2020-09-28 04:55 | PC.NURSE ---
Pt is alert and oriented x4. Pt has rested well intermittently t/o shift with eyes closed. No acute changes noted from previous shift. Pt up to shower with assist x1. Tolerates ambulation well with NWB status to RLE and assist of walker. Pain meds given AMALIA per MAR. Rates pain 7/10 on pain scale to RLE. Tolerated RA well with no c/o SOA. +2 nonpit edema noted to RLE digits. Dsg noted c/d/i to RLE. RLE remains elevated with intermittent ice applications t/o shift. VSS. Remains safe. Call light within reach. Will continue to monitor.
[2020-09-28 05:00] VITALS: BMI 19.4
[2020-09-28 07:09] LABS: Basophils % 0.4 % (0.1-2.0); Eosinophils # 0.1 K/mm3 (0.0-0.4); Eosinophils % 1.3 % (0.1-12.0); Hematocrit 28.3 % (42.0-52.0); Lymphocytes # 0.9 K/mm3 (0.7-4.5); Lymphocytes % 16.1 % (10-50); Mean Corpuscular HGB Conc 31.9 g/dL (31.8-35.4); Mean Corpuscular Hemoglobin 31.9 pg (27.0-31.2); Mean Corpuscular Volume 99.9 fl (80-94); Mean Platelet Volume 8.5 fl (7.4-10.4); Monocytes # 0.7 K/mm3 (0.1-1.0); Monocytes % 13.5 % (1.7-9.3); Neutrophils # 3.7 K/mm3 (1.8-7.8); Neutrophils % 68.7 % (37.0-80.0); Platelet Count 550 K/mm3 (142-424); Red Blood Count 2.83 M/mm3 (4.60-6.20); Red Cell Distribution Width 17.8 % (11.5-17.5); White Blood Count 5.3 K/mm3 (4.8-10.8)
[2020-09-28 07:11] LABS: Chloride 111 mmol/L (98-107); Potassium 4.5 mmoL/L (3.5-5.1); Sodium 139 mmol/L (136-145)
[2020-09-28 07:14] LABS: Anion Gap 13.5 mEq/L (5-15); Blood Urea Nitrogen 7 mg/dl (9-20); Carbon Dioxide 19 mmol/L (22.0-30.0); Creatinine Clearance Estimated 165 mL/min (50-200); Estimated Glomerular Filt Rate 140 ml/min (>60); GFR (African American) 169 ML/MIN (>60)
[2020-09-28 07:15] LABS: Calcium 9.4 mg/dl (8.4-10.2); Glucose 103 mg/dl (74-100)
[2020-09-28 08:00] VITALS: BP 133/79; PULSE 88; RESP 16; TEMP 36.8; O2SAT 100
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
--- NOTE | 2020-09-28 08:13 | XR_ITS ---
PROCEDURE: XR CHEST PORTABLE CLINICAL HISTORY: fever COMPARISON: CR XR CHEST PORTABLE from 09/20/[address] ANGIO CHEST from 09/20/2020 FINDINGS: The cardiomediastinal silhouette and pulmonary vascularity are within normal limits. The lungs are clear without infiltrates, suspicious nodules, or pleural effusions. There is mild thoracic curvature convex left. IMPRESSION: No acute findings. Dictated by: Isaac Bonilla MD 09/28/2020 10:31 Isaac Bonilla MD in [facility] 09/28/2020 10:31
[2020-09-28 09:33] VITALS: BMI 19.4
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
--- NOTE | 2020-09-28 15:26 | PC.NURSE ---
PT IS NON WEIGHT BEARING FOR 10 WEEKS ON THE RT LEG. PT WOULD BENEFIT HAVING A WALKER AND HOSPITAL BED TO ASSIST WITH TRANSFERS.
--- NOTE | 2020-09-28 15:35 | PC.NURSE ---
PT IS RESTING IN BED. TOLERATES GETTING OOB WITH 1 ASSIST AND WALKER. PT IS ATTEMPTING TO USE CRUTCHES THIS AFTERNOON. DOES WELL PARTICIPATING WITH PHYSICAL THERAPY. MILD TREMORS NOTED (PT STATES HE ALWAYS HAS A MILD TREMOR) PT STATES HE FEELS LIKE THE TORADOL HELP WITH MANAGING HIS PAIN. LUNG SOUNDS CLEAR. BOWEL SOUNDS NORMAL. VSS. EATING AND DRINKING WELL. WILL CONTINUE TO MONITOR.
[2020-09-28 16:00] VITALS: BP 118/70; PULSE 94; RESP 16; TEMP 37.4; O2SAT 100
[2020-09-28 20:00] VITALS: BP 128/71; PULSE 95; RESP 17; TEMP 37.2; O2SAT 100
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
[2020-09-29 04:00] VITALS: BP 127/69; PULSE 92; RESP 16; TEMP 36.9; O2SAT 100
--- NOTE | 2020-09-29 04:09 | PC.NURSE ---
Addendum entered by Lourdes Baez RN 09/29/20 04:14: Pt has used IS hourly during waking hours. At best, pt can reach 2,000 on the IS. Original Note: Pt has rested well this shift. Pt has been A&Ox4. Lung sounds clear. Active bowel sounds in all 4 quads. Rt incision dressing remains CDI with no drainage noted this shift. Pt's RLE continues to be elevated and ice packs were applied this shift for additional comfort. Pt's pain rating has been rated anywhere from 5-8 on the numeric scale all evening. Scheduled pain meds administered per JAN and has achieved therapeutic effect. Thigh-high SCUDS still applied to LLE. Pt continues to use the urinal this shift and has urinated clear, caren-colored urine. Pt continues to be on fluid restrictions, SEE INTAKE AND OUTPUT. No other acute changes or complaints at this time. Will continue to monitor.
[2020-09-29 05:00] VITALS: BMI 19.0
[2020-09-29 08:00] VITALS: BP 124/75; PULSE 88; RESP 16; TEMP 36.9; O2SAT 100
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
[2020-10-08 13:45] LABS: POC Glucose,Bedside 96 (70-110)
== END 2020-09-29 13:15 | disposition home health service (06) | DRG 493 ==
LOC: ER 14:19 → 2ND 15:17
PROVIDERS: Admitting Provider Internal Medicine Adolescent Medicine; Emergency Provider Emergency Medicine; PCP Internal Medicine Adolescent Medicine; Referring Provider Orthopaedic Surgery; Visit Provider Internal Medicine Adolescent Medicine
PROC: 0QHG35Z Insertion of External Fixation Device into Right Tibia, Percutaneous Approach (ICD-10-PCS; CPT 27602; principal; 2020-09-20 17:00)
PROC: 0J9N0ZZ Drainage of Right Lower Leg Subcutaneous Tissue and Fascia, Open Approach (ICD-10-PCS; CPT 10140; principal; 2020-09-22 11:45)
PROC: 0JQN0ZZ Repair Right Lower Leg Subcutaneous Tissue and Fascia, Open Approach (ICD-10-PCS; CPT 13160; principal; 2020-09-24 09:45)
DX: S82.141A Displaced bicondylar fracture of right tibia, initial encounter for closed fracture (principal); T79.A21A Traumatic compartment syndrome of right lower extremity, initial encounter; F10.239 Alcohol dependence with withdrawal, unspecified; F10.220 Alcohol dependence with intoxication, uncomplicated; Y90.8 Blood alcohol level of 240 mg/100 ml or more; G56.01 Carpal tunnel syndrome, right upper limb; V86.55XA Driver of 3- or 4- wheeled all-terrain vehicle (ATV) injured in nontraffic accident, initial encounter; Y92.821 Forest as the place of occurrence of the external cause; Y99.8 Other external cause status; S01.81XA Laceration without foreign body of other part of head, initial encounter; S01.312A Laceration without foreign body of left ear, initial encounter; D64.9 Anemia, unspecified; R25.1 Tremor, unspecified
CPT/HCPCS: 12011; 27602; 20690; 10140; 13160; 27536; 36415; 70450; 71045; 71275; 72125; 72170; 73090; 73110; 73130; 73552; 73560; 73590; 73700; 74177; 76000; 80048; 80053; 80305; 81001; 82962; 83735; 84100; 85007; 85014; 85018; 85025; 85610; 85730; 86328; 86850; 87070; 87075; 87077; 87186; 87205; 90715; 96374; 96375; 96376; 97110; 97116; 97162; 97530; 97760; 99284; C1713; C1776; J2405; J3370; P9016; Q9967

== ENCOUNTER → 2020-10-05 13:41 | Outpatient (CLI) | payer BC, SELFPAY ==
--- NOTE | 2020-10-05 13:45 | XR_ITS ---
PROCEDURE: XR KNEE RT 3V CLINICAL INDICATION: RT tibial plateau Follow-up fracture/ORIF COMPARISON: CR XR KNEE RT 2V from 09/20/2020 CR XR KNEE RT 2V from 09/24/2020 FINDINGS: Status post ORIF proximal tibia with lateral tibial bone plate, smaller posterior tibial bone plate and multiple cortical screws. There is good alignment. There is some remodeling noted along the fracture site with fracture margins somewhat less apparent suggesting healing. Lucencies are present at the distal femur from prior external fixator. IMPRESSION: Good alignment status post ORIF proximal healing tibial fracture Dictated by: Isaac Bonilla MD 10/05/2020 15:06 Isaac Bonilla MD in [place] 10/05/2020 15:06
== END ==
PROVIDERS: PCP Internal Medicine Adolescent Medicine; Visit Provider Orthopaedic Surgery
DX: S82.141A Displaced bicondylar fracture of right tibia, initial encounter for closed fracture (principal)
CPT/HCPCS: 73562

== ENCOUNTER → 2020-10-16 14:58 | Outpatient (CLI) | payer BC, SELFPAY ==
[2020-10-16 15:30] LABS: Basophils % 0.6 % (0.1-2.0); Eosinophils # 0.1 K/mm3 (0.0-0.4); Eosinophils % 1.8 % (0.1-12.0); Hematocrit 36.6 % (42.0-52.0); Hemoglobin 11.6 g/dL (14.1-18.0); Lymphocytes # 1.1 K/mm3 (0.7-4.5); Lymphocytes % 27.4 % (10-50); Mean Corpuscular HGB Conc 31.5 g/dL (31.8-35.4); Mean Corpuscular Hemoglobin 31.8 pg (27.0-31.2); Mean Corpuscular Volume 100.8 fl (80-94); Mean Platelet Volume 8.4 fl (7.4-10.4); Monocytes # 0.3 K/mm3 (0.1-1.0); Monocytes % 8.8 % (1.7-9.3); Neutrophils # 2.4 K/mm3 (1.8-7.8); Neutrophils % 61.5 % (37.0-80.0); Platelet Count 491 K/mm3 (142-424); Red Blood Count 3.64 M/mm3 (4.60-6.20); Red Cell Distribution Width 16.9 % (11.5-17.5); White Blood Count 3.9 K/mm3 (4.8-10.8)
[2020-10-16 15:56] LABS: Alanine Aminotransferase 11 U/L (12-78); Albumin Level 4.2 g/dl (3.5-5.0); Albumin/Globulin Ratio 1.4 (1.1-1.8); Alkaline Phosphatase 102 U/L (38-126); Anion Gap 13.5 mEq/L (5-15); Aspartate Amino Transferase 23 U/L (17-59); Bilirubin,Total 0.4 mg/dl (0.2-1.3); Blood Urea Nitrogen 4 mg/dl (9-20); Calcium 9.7 mg/dl (8.4-10.2); Carbon Dioxide 27 mmol/L (22.0-30.0); Chloride 105 mmol/L (98-107); Estimated Glomerular Filt Rate 120 ml/min (>60); GFR (African American) 145 ML/MIN (>60); Globulin 3.1 g/dL (1.3-3.2); Glucose 92 mg/dl (74-100); Potassium 4.5 mmoL/L (3.5-5.1); Sodium 141 mmol/L (136-145); Total Protein,Serum 7.3 g/dl (6.3-8.2)
[2020-10-16 16:28] LABS: Erythrocyte Sedimentation Rate 42 mm/hr (0-15)
== END ==
PROVIDERS: Visit Provider Internal Medicine Adolescent Medicine
DX: S82.141S Displaced bicondylar fracture of right tibia, sequela (principal); D50.0 Iron deficiency anemia secondary to blood loss (chronic)
CPT/HCPCS: 36415; 80053; 85025; 85651

== ENCOUNTER → 2020-10-19 14:28 | Outpatient (POV) | payer BC, SELFPAY ==
[2020-10-19 14:58] VITALS: BP 145/95; PULSE 95; RESP 18; TEMP 36.4; O2SAT 98; BMI 18.7
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
== END ==
PROVIDERS: PCP Internal Medicine Adolescent Medicine; Visit Provider Clinical Nurse Specialist Family Health
DX: M79.2 Neuralgia and neuritis, unspecified (principal); Z98.890 Other specified postprocedural states; S82.131A Displaced fracture of medial condyle of right tibia, initial encounter for closed fracture; T79.A0XA Compartment syndrome, unspecified, initial encounter
CPT/HCPCS: 99202

== ENCOUNTER 2020-10-23 10:05 | Day surgery (SDC) | payer BC, SELFPAY ==
[2020-10-23 10:31] VITALS: BP 124/76; PULSE 93; RESP 18; TEMP 36.4; O2SAT 98; BMI 18.7
[2020-10-23 11:10] VITALS: BP 125/74; PULSE 85; RESP 18
[2020-10-23 11:11] VITALS: BP 118/74; PULSE 74; RESP 18; O2SAT 98
[2020-10-23 11:35] VITALS: BP 135/88; PULSE 87; RESP 18; O2SAT 98
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
== END 2020-10-23 11:35 | disposition home or self-care (01) ==
LOC: SC.PAINP 10:06
PROVIDERS: PCP Internal Medicine Adolescent Medicine; Visit Provider Anesthesiology
DX: G90.521 Complex regional pain syndrome I of right lower limb (principal); T79.A21A Traumatic compartment syndrome of right lower extremity, initial encounter; F41.9 Anxiety disorder, unspecified; G43.909 Migraine, unspecified, not intractable, without status migrainosus; G90.2 Horner's syndrome; Z98.890 Other specified postprocedural states; Z79.899 Other long term (current) drug therapy
CPT/HCPCS: 64447; J1040

== ENCOUNTER → 2020-10-26 15:11 | Outpatient (CLI) | payer BC, SELFPAY ==
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
== END ==
PROVIDERS: PCP Internal Medicine Adolescent Medicine; Visit Provider Orthopaedic Surgery
DX: S82.141A Displaced bicondylar fracture of right tibia, initial encounter for closed fracture (principal); T79.A0XA Compartment syndrome, unspecified, initial encounter
CPT/HCPCS: 73562

== ENCOUNTER 2020-11-04 15:05 | Day surgery (SDC) | payer BC, OTHER, SELFPAY ==
[2020-11-04 15:48] VITALS: BP 125/88; BP 145/77; PULSE 128; PULSE 85; RESP 16; RESP 18; TEMP 36.4; O2SAT 97; O2SAT 98; BMI 19.1
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
[2020-11-04 16:21] VITALS: BP 132/85; PULSE 85
[2020-11-04 16:35] VITALS: BP 130/82; PULSE 100; RESP 20; O2SAT 100
== END 2020-11-04 16:36 | disposition home or self-care (01) ==
LOC: SC.PAINP 15:06
PROVIDERS: PCP Internal Medicine Adolescent Medicine; Visit Provider Anesthesiology
DX: G90.521 Complex regional pain syndrome I of right lower limb (principal); G57.71 Causalgia of right lower limb; S82.131A Displaced fracture of medial condyle of right tibia, initial encounter for closed fracture; T79.A21A Traumatic compartment syndrome of right lower extremity, initial encounter; G25.0 Essential tremor; F41.9 Anxiety disorder, unspecified; F32.9 Major depressive disorder, single episode, unspecified
CPT/HCPCS: 64447; 76942; J1040

== ENCOUNTER → 2020-11-13 15:03 | Outpatient (CLI) | payer BC, SELFPAY | PROVIDERS: PCP Internal Medicine Adolescent Medicine; Visit Provider Orthopaedic Surgery | DX: S82.141D Displaced bicondylar fracture of right tibia, subsequent encounter for closed fracture with routine healing (principal) ==

== ENCOUNTER 2020-11-13 16:08 | Outpatient (RCR) | payer BC, OTHER, SELFPAY | END 2020-11-13 17:40 | disposition home or self-care (01) | LOC: PT 16:08 | PROVIDERS: Visit Provider Orthopaedic Surgery | DX: S82.141D Displaced bicondylar fracture of right tibia, subsequent encounter for closed fracture with routine healing (principal); T79.A21D Traumatic compartment syndrome of right lower extremity, subsequent encounter; M21.371 Foot drop, right foot | CPT/HCPCS: 97760 ==

== ENCOUNTER 2020-11-20 09:39 | Day surgery (SDC) | payer BC, OTHER, SELFPAY ==
[2020-11-20 10:27] VITALS: BP 128/77; PULSE 126; RESP 18; TEMP 36.3; O2SAT 97; BMI 19.9
[2020-11-20 11:11] VITALS: BP 132/85; PULSE 89; RESP 18; O2SAT 98
[2020-11-20 11:12] VITALS: BP 158/85; PULSE 85; RESP 18; O2SAT 98
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
[2020-11-20 11:20] VITALS: BP 114/68; PULSE 101; RESP 20; O2SAT 97
== END 2020-11-20 11:20 | disposition home or self-care (01) ==
LOC: SC.PAINP 09:40
PROVIDERS: PCP Internal Medicine Adolescent Medicine; Visit Provider Anesthesiology
DX: G90.511 Complex regional pain syndrome I of right upper limb (principal); G57.71 Causalgia of right lower limb; Z82.49 Family history of ischemic heart disease and other diseases of the circulatory system; Z87.39 Personal history of other diseases of the musculoskeletal system and connective tissue; Z98.890 Other specified postprocedural states
CPT/HCPCS: 64447; 76942; J1040

== ENCOUNTER → 2020-11-27 08:10 | Outpatient (CLI) | payer BC, OTHER, SELFPAY ==
--- NOTE | 2020-11-27 08:19 | XR_ITS ---
PROCEDURE: XR KNEE RT 3V CLINICAL INDICATION: s/p RT tibial plateau; out of brace Follow-up tibial plateau fracture/ORIF COMPARISON: CR XR KNEE RT 2V from 09/20/2020 CR XR KNEE RT 2V from 09/24/2020 CR XR KNEE RT 3V from 10/05/2020 CR XR KNEE RT 3V from 10/26/2020 FINDINGS: Multiple cortical screws and lateral bone plate once again noted at the proximal tibia. There is a posterior bone plate as well at the proximal tibia. The tibial plateau fracture once again noted with good alignment. The fracture lines are somewhat less visible suggesting healing. Lucencies are present in the distal femur from old cortical screws. IMPRESSION: Status post ORIF healing tibial plateau fracture with good alignment Dictated by: Isaac Bonilla MD 11/27/2020 08:48 Isaac Bonilla MD in [place] 11/27/2020 08:48
== END ==
PROVIDERS: PCP Internal Medicine Adolescent Medicine; Visit Provider Orthopaedic Surgery
DX: S82.141A Displaced bicondylar fracture of right tibia, initial encounter for closed fracture (principal); T79.A0XA Compartment syndrome, unspecified, initial encounter
CPT/HCPCS: 73562

== ENCOUNTER → 2020-12-10 15:52 | Outpatient (POV) | payer BC, SELFPAY ==
--- NOTE | 2020-12-10 16:16 | P.CONS_ITS ---
[facility] Pain Management SOAP Note Subjective:: Patient is a pleasant 25-year-old white male who presents today for follow-up. 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 Patient is doing well today rating his pain a 2 out of 10. He started to reduce his Lyrica. He has been on Lyrica 150 mg 1 p.o. 4 times daily he is now taking it 3 times a day. I provided him with a weaning schedule. Patient is continuing physical therapy and overall doing quite well.. ROS General: no recent weight change, no fever, no sleep disturbances Respiratory: no cough, no shortness of air, no recurring pulmonary infections Cardiovascular/Peripheral Vascular: No chest pain, No palpitations, no edema, no shortness of breath. Gastrointestinal: no new onset incontinence, normal bowel movements reported Genitourinary: no new onset incontinence Musculoskeletal: Right leg pain Psychiatric: normal mood/ affect Neurological: [denies new onset weakness in extremities], [denies new onset balance issues] Objective:: Physical Exam General: Alert and oriented x3, no acute distress, pleasant and cooperative, [on room air] Lungs: Resps E/U, Symmetrical chest expansion, Eyes: PERRL Musculoskeletal: Range of Motion right lower extremity somewhat guarded secondary to pain, deep tendon reflexes normal, strength in upper and lower extremities [5/5], [abnormal gait noted] Neurological: speech clear, security compliance engineer equal, no gross sensory deficits Assessment:: 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 Overall patient doing very well. Dr. De La Cruz has reviewed this note and agrees with this plan of care. This note was dictated using voice recognition software and may contain errors or omissions [facility] History I have reviewed the patient's past medical history: Yes Medical History: Denies:: Cancer, Chronic Obstructive Pulmonary Disease (COPD), Diabetes Mellitus Type 1, Diabetes Mellitus Type 2, MRSA, Seizures *Have you ever received a pneumonia vaccine?: No *Have you received a flu vaccine this season?: No Other Medical History: Denies: Blood Transfusion Reaction Laterality Cases: Left: Other Other Surgeries: Yes: Other Amputation: No Fractures: Yes - *Social History Smoking Status: Never smoker Tobacco Type: e-cigarettes # Packs/Day (cigarettes): 0 #Yrs smoked (if former smoker): 0 Alcohol Intake: never Alcohol Intake Frequency:: 3 or more drinks per day Substance Use Type: denies use *Occupational Status:: student Housing: house Household Members: family *Travel in the last 8 weeks: None Family Hx:: Cancer, Hypertension, Alcoholism
== END ==
PROVIDERS: PCP Internal Medicine Adolescent Medicine; Visit Provider Clinical Nurse Specialist Family Health
DX: G57.71 Causalgia of right lower limb (principal); T79.A0XD Compartment syndrome, unspecified, subsequent encounter
CPT/HCPCS: 99212; G0463

== ENCOUNTER → 2020-12-21 10:57 | Outpatient (CLI) | payer BC, OTHER, SELFPAY ==
--- NOTE | 2020-12-21 11:02 | XR_ITS ---
PROCEDURE: XR KNEE RT 3V CLINICAL INDICATION: s/p ORIF tibial plateau fracture COMPARISON: CR XR KNEE RT 2V from 09/24/2020 CR XR KNEE RT 3V from 10/05/2020 CR XR KNEE RT 3V from 10/26/2020 CR XR KNEE RT 3V from 11/27/2020 FINDINGS: Patient has had prior extensive plate and screw fixation. There has been osteopenia the visualized portions of the distal femur and upper tibia which could be related to disuse osteopenia or reflex sympathetic dystrophy. A focal lucencies seen adjacent to the lower portion of the medial plate is more prominent than on prior studies. This could be secondary to projection of imaging for an area of incomplete union. There is been otherwise healing at the remaining fracture. Hardware remains well-positioned. No additional fractures. The joint spaces are well-preserved. No significant degenerative/arthritic changes. No erosive changes evident. Other findings:None. IMPRESSION: Questionable lucency adjacent to the medial tibial plate of uncertain significance is further discussed below. Dictated by: Lorie Mcclellan 12/21/2020 11:42 Lorie Mcclellan in [place] 12/21/2020 11:42
== END ==
PROVIDERS: PCP Internal Medicine Adolescent Medicine; Visit Provider Orthopaedic Surgery
DX: S82.141A Displaced bicondylar fracture of right tibia, initial encounter for closed fracture (principal)
CPT/HCPCS: 73562

== ENCOUNTER → 2021-01-18 14:17 | Outpatient (POV) | payer BC, SELFPAY ==
[2021-01-18 14:32] VITALS: BP 125/77; PULSE 88; RESP 20; O2SAT 100; BMI 19.8
--- NOTE | 2021-01-18 14:32 | P.CONS_ITS ---
[facility] Pain Management SOAP Note Subjective:: Patient is a very pleasant 26-year-old white male who presents today for follow- up. Patient is being treated for pain secondary to CRPS type I and II symptoms of the right leg status post right tibial plateau fracture and previous compartment syndrome. Patient is overall doing extremely well rating his pain a 2 out of 10 he has completely weaned himself off of his Lyrica he is continuing physical therapy and at this point only needs to be seen on an as-needed basis. ROS General: no recent weight change, no fever, no sleep disturbances Respiratory: no cough, no shortness of air, no recurring pulmonary infections Cardiovascular/Peripheral Vascular: No chest pain, No palpitations, no edema, no shortness of breath. Gastrointestinal: no new onset incontinence, normal bowel movements reported Genitourinary: no new onset incontinence Musculoskeletal: Right leg pain Psychiatric: normal mood/ affect Neurological: [denies new onset weakness in extremities], [denies new onset balance issues] Objective:: Physical Exam General: Alert and oriented x3, no acute distress, pleasant and cooperative, [on room air] Lungs: Resps E/U, Symmetrical chest expansion, Eyes: PERRL Musculoskeletal: Range of motion right leg somewhat guarded secondary to pain, deep tendon reflexes normal, strength in upper and lower extremities [5/5], antalgic gait noted Neurological: speech clear, surgical services tech equal, no gross sensory deficits Assessment:: 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 Dr. De La Cruz has reviewed this note and agrees with this plan of care. This note was dictated using voice recognition software and may contain errors or omissions [facility] History I have reviewed the patient's past medical history: Yes Medical History: Denies:: Cancer, Chronic Obstructive Pulmonary Disease (COPD), Diabetes Mellitus Type 1, Diabetes Mellitus Type 2, MRSA, Seizures *Have you ever received a pneumonia vaccine?: No *Have you received a flu vaccine this season?: No Other Medical History: Denies: Blood Transfusion Reaction Laterality Cases: Left: Other Other Surgeries: Yes: Other Amputation: No Fractures: Yes - *Social History Smoking Status: Never smoker Tobacco Type: e-cigarettes # Packs/Day (cigarettes): 0 #Yrs smoked (if former smoker): 0 Alcohol Intake: never Alcohol Intake Frequency:: 3 or more drinks per day Substance Use Type: denies use *Occupational Status:: student Housing: house Household Members: family *Travel in the last 8 weeks: None Family Hx:: Cancer, Hypertension, Alcoholism
== END ==
PROVIDERS: PCP Internal Medicine Adolescent Medicine; Visit Provider Clinical Nurse Specialist Family Health
DX: G57.71 Causalgia of right lower limb (principal)
CPT/HCPCS: 99212; G0463

== ENCOUNTER → 2021-01-22 13:48 | Outpatient (CLI) | payer BC, SELFPAY ==
--- NOTE | 2021-01-22 13:56 | XR_ITS ---
PROCEDURE: XR KNEE RT 3V CLINICAL INDICATION: ORIF tibial plateau fracture COMPARISON: CR XR KNEE RT 3V from 10/05/2020 CR XR KNEE RT 3V from 10/26/2020 CR XR KNEE RT 3V from 11/27/2020 CR XR KNEE RT 3V from 12/21/2020 FINDINGS: Status post ORIF right proximal tibial fracture. The lateral tibial bone plate and posterior proximal tibial bone plate remain in place with multiple cortical screws with good alignment with no significant change compared to the multiple previous exams. Fracture line remains visible along the lower portion of the fracture site. There remains good alignment. IMPRESSION: No change good alignment status post ORIF proximal tibial fracture Dictated by: Isaac Bonilla MD 01/22/2021 14:46 Isaac Bonilla MD in [place] 01/22/2021 14:46
== END ==
PROVIDERS: PCP Internal Medicine Adolescent Medicine; Visit Provider Orthopaedic Surgery
DX: S82.141A Displaced bicondylar fracture of right tibia, initial encounter for closed fracture (principal)
CPT/HCPCS: 73562

== ENCOUNTER → 2021-01-29 14:47 | Outpatient (CLI) | payer BC, SELFPAY ==
--- NOTE | 2021-01-29 14:49 | XR_ITS ---
PROCEDURE: XR TIBIA FIBULA RT 2V CLINICAL INDICATION: s/p rt tibial plateau Follow-up surgery COMPARISON: CR XR TIBIA FIBULA RT 2V from 09/20/2020 CR XR TIBIA FIBULA RT 2V from 09/20/2020 FINDINGS: Status post ORIF tibial plateau fracture. The fracture fragments are in good alignment. There is a lateral bone plate at the proximal fibula with multiple cortical screws. A posterior bone plate along the proximal tibia also noted. Fracture line is still visible along the inferior margin. Superior margin of the fracture appears less apparent. Lucencies are present in the distal tibia consistent with prior external fixation. IMPRESSION: Status post ORIF proximal tibia with good alignment as described above. Dictated by: Isaac Bonilla MD 01/29/2021 15:41 Isaac Bonilla MD in [place] 01/29/2021 15:41
== END ==
PROVIDERS: PCP Internal Medicine Adolescent Medicine; Visit Provider Orthopaedic Surgery
DX: S82.131A Displaced fracture of medial condyle of right tibia, initial encounter for closed fracture (principal)
CPT/HCPCS: 73590

== ENCOUNTER 2021-02-10 14:00 | Outpatient (RCR) | payer BC, OTHER, SELFPAY ==
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
--- NOTE | 2020-11-13 15:14 | HMH.RHREAS ---
Rehab Reassessment Rehab OP Re-assessment Start: 11/13/20 15:05 Freq: Status: Active Protocol: Document 11/13/20 15:10 SUSAN (Rec: 11/13/20 15:14 PHODOMINIC [id number]) Electronically Signed By Florentin Andres, PT 11/13/20 15:10 Rehab Re-assessment Subjective Subjective Pt reports much less pain overall after most recent nerve block. Objective Objective Notes R knee wounds: Lateral L= 1.0 cm, W= 1.0 cm, Medial L= 4.0 cm, W= 0.5 cm. R knee AAROM: 0-90 deg. Assessment Progress Assessment Progressing as Expected Assessment Notes Pt with significantly improved wounds on R knee and all scar tissue appears to be beginning maturation phase well. AAROM of the R knee is progressing steadily and pain is greatly decreased. No active muscle contraction in ankle dorsiflexion noted as of yet, remains very weak throughout the R lower leg due to nerve damage. Patient goals met ST,2,3,4,5 Goals Not Met LT,2,3,4,5,6,7,8,9 Revised Goals none Plan Plan Continue per initial POC. Frequency of Therapy 2 x/wk Duration of therapy 8 wks Time and Billing Re-Eval Time 15 Re-Eval Billing Units 1 PHYSICIAN CERTIFICATION: I certify the specified therapy services for Rai Garcias are required, authorized, and reviewed every 30 days.
--- NOTE | 2021-01-13 16:11 | HMH.RHREAS ---
Rehab Reassessment Rehab OP Re-assessment Start: 11/13/20 15:05 Freq: Status: Active Protocol: Document 01/13/21 16:09 SUSAN (Rec: 01/13/21 16:10 SUSAN [id number]) Electronically Signed By Florentin Andres, PT 01/13/21 16:09 Rehab Re-assessment Subjective Subjective Pt reports he felt the bots[place] stim last visit may have helped with some ankle motion. Objective Objective Notes MMT R ankle: DF= 0/5, PF= 3+/5 , INV= 2+/5, EVER= 2/5. Gait: Minimal steppage gait noted this date with AFO in place. Assessment Progress Assessment Progressing as Expected Assessment Notes Continues to improve gait with AKO, strength in ankle DF remains trace at best. Endurance to standing activity improving, but needs to continue work on dynamic standing balance, especially in single leg stance. Patient goals met ST,2,3,4,5 Goals Not Met LT,2,3,4,5,6,7,8,9 Revised Goals none Plan Plan Continue per initial POC. Frequency of Therapy 2 x/wk Duration of therapy 8 wks Time and Billing Re-Eval Time 15 Re-Eval Billing Units 1 PHYSICIAN CERTIFICATION: I certify the specified therapy services for Rai Garcias are required, authorized, and reviewed every 30 days.
== END 2021-02-10 14:05 | disposition home or self-care (01) ==
LOC: PT 14:00
PROVIDERS: PCP Internal Medicine Adolescent Medicine; Visit Provider Orthopaedic Surgery
DX: S82.141D Displaced bicondylar fracture of right tibia, subsequent encounter for closed fracture with routine healing (principal); T79.A21D Traumatic compartment syndrome of right lower extremity, subsequent encounter
CPT/HCPCS: 97014; 97110; 97112; 97140; 97163; 97164; 97530; 97597; G0283

== ENCOUNTER → 2021-02-22 14:55 | Outpatient (CLI) | payer BC, SELFPAY ==
--- NOTE | 2021-02-22 15:01 | XR_ITS ---
PROCEDURE: XR KNEE RT 3V CLINICAL INDICATION: RT tibial plateau Follow-up surgery COMPARISON: CR XR KNEE RT 3V from 10/26/2020 CR XR KNEE RT 3V from 11/27/2020 CR XR KNEE RT 3V from 12/21/2020 CR XR KNEE RT 3V from 01/22/2021 FINDINGS: Status post ORIF proximal tibia with lateral and posterior tibial bone plate with good alignment with healing oblique fracture extending into the medial aspect of the lateral tibial plateau. Fracture line appears somewhat less apparent. There is good alignment without obvious hardware malfunction. The joint spaces are well-preserved. No significant degenerative/arthritic changes. No erosive changes evident. Other findings:None. IMPRESSION: Healing proximal tibial fracture with good alignment status post ORIF Dictated by: Isaac Bonilla MD 02/22/2021 16:27 Isaac Bonilla MD in [place] 02/22/2021 16:27
== END ==
PROVIDERS: PCP Internal Medicine Adolescent Medicine; Visit Provider Orthopaedic Surgery
DX: S82.141A Displaced bicondylar fracture of right tibia, initial encounter for closed fracture (principal)
CPT/HCPCS: 73562

== ENCOUNTER → 2021-03-04 14:31 | Outpatient (CLI) | payer BC, SELFPAY ==
--- NOTE | 2021-03-04 14:38 | MR_ITS ---
PROCEDURE: MR KNEE RT WO CON CLINICAL INDICATION: rt knee pain Intermittent knee pain x1.5months. Prior x-ray 02/22/2021. Prior surgery 2019. COMPARISON: CR XR KNEE RT 3V from 02/22/2021 TECHNIQUE: Routine multiplanar multi echo sequences are performed without gadolinium enhancement. FINDINGS: There is a moderate degree of artifact from metallic hardware in the proximal tibia. There is also mild degree of motion artifact. The cruciate ligaments appear intact. The medial collateral ligament appears intact. The lateral ligamentous complex is not well delineated at the tibial component due to the metallic artifact. The femoral portion of these ligaments have an unremarkable appearance. The patellar tendon and quadriceps tendon appear intact. Patellar cartilage is preserved. There is a nondisplaced horizontal tear involving the posterior horn of the medial meniscus. The tear extends to the posterior and medial free edge but does not extend to the articular surfaces of the meniscus. There is a questionable horizontal tear of the posterior horn of the lateral meniscus. Artifact is present in this region. No significant effusion. Fracture is present involving the proximal tibia somewhat curvilinear in nature extending from the lateral aspect of the lateral tibial spine inferiorly to the lateral edge of the diaphyseal metaphyseal region. IMPRESSION: 1. Postsurgical changes causing a moderate amount of artifact obscuring most of the proximal tibia 2. Nondisplaced horizontal tear of the posterior horn of the medial meniscus. 3. There may also be a tear involving the posterior horn of the lateral meniscus 4. Nondisplaced fracture of the proximal tibia status post ORIF Dictated by: Isaac Bonilla MD 03/05/2021 06:16 Isaac Bonilla MD in [place] 03/05/2021 06:16
== END ==
PROVIDERS: PCP Internal Medicine Adolescent Medicine; Visit Provider Orthopaedic Surgery
DX: S82.141A Displaced bicondylar fracture of right tibia, initial encounter for closed fracture (principal); T79.A0XA Compartment syndrome, unspecified, initial encounter; M21.379 Foot drop, unspecified foot
CPT/HCPCS: 73721

== ENCOUNTER → 2021-05-26 12:29 | Outpatient (CLI) | payer BC, SELFPAY ==
--- NOTE | 2021-05-26 12:34 | XR_ITS ---
PROCEDURE: XR FOOT RT MIN 3V CLINICAL INDICATION: PAIN IN RT FOOT COMPARISON: No exams were available for comparison FINDINGS: There is a subtle vertical thin radiolucency in the proximal phalanx of the great toe with possible involvement of the articular cortex the medial base of the proximal phalanx. First metatarsal and distal phalanx of the great toe appear intact. Remaining metatarsals and phalanges appear intact. IMPRESSION: Probable nondisplaced fracture base of proximal phalanx great toe extending to involve the articular cortex of the MP joint Dictated by: Dr. Sarkis Rick MD 05/26/2021 14:31 Dr. Sarkis Rick MD in [place] 05/26/2021 14:31
== END ==
PROVIDERS: PCP Internal Medicine Adolescent Medicine; Visit Provider Internal Medicine Adolescent Medicine
DX: M79.671 Pain in right foot (principal)
CPT/HCPCS: 73630

== ENCOUNTER → 2021-07-28 16:06 | Outpatient (CLI) | payer BC, SELFPAY ==
--- NOTE | 2021-07-28 16:12 | XR_ITS ---
PROCEDURE: XR ANKLE WT BEARING RT MIN 3V CLINICAL INDICATION: PAIN IN RT FOOT COMPARISON: CR XR TIBIA FIBULA RT 2V from 09/20/2020 FINDINGS: Bones: Lucencies are present in the distal shaft of the tibia from old screw hose from an external fixator. No fracture or dislocation.. Joints: The joint spaces are well-preserved. No significant degenerative/arthritic changes. No erosive changes evident. Other findings:None. IMPRESSION: No acute findings. Dictated by: Isaac Bonilla MD 07/28/2021 17:55 Isaac Bonilla MD in [place] 07/28/2021 17:55
--- NOTE | 2021-07-28 16:12 | XR_ITS ---
PROCEDURE: XR FOOT WT BEARING RT 3V CLINICAL INDICATION: PAIN IN RT FOOT COMPARISON: CR XR FOOT RT MIN 3V from 05/26/2021 FINDINGS: There is sclerosis of the proximal aspect of the proximal phalanx of the great toe consistent with healing nondisplaced fracture. The joint spaces are well-preserved. No significant degenerative/arthritic changes. No erosive changes evident. Other findings:None. IMPRESSION: Healing proximal 1st phalanx fracture Dictated by: Isaac Bonilla MD 07/28/2021 17:52 Isaac Bonilla MD in [place] 07/28/2021 17:52
== END ==
PROVIDERS: PCP Internal Medicine Adolescent Medicine; Visit Provider Internal Medicine Adolescent Medicine
DX: M79.671 Pain in right foot (principal)
CPT/HCPCS: 73610; 73630

== ENCOUNTER → 2021-09-16 17:51 | Outpatient (CLI) | payer BC, SELFPAY ==
[2021-09-16 18:45] LABS: Basophils % 1.1 % (0.1-2.0); Eosinophils % 1.2 % (0.1-12.0); Hematocrit 48.3 % (42.0-52.0); Hemoglobin 15.9 g/dL (14.1-18.0); Lymphocytes # 0.9 K/mm3 (0.7-4.5); Lymphocytes % 29.3 % (10-50); Mean Corpuscular Hemoglobin 33.5 pg (27.0-31.2); Mean Corpuscular Volume 101.4 fl (80-94); Mean Platelet Volume 8.7 fl (7.4-10.4); Monocytes # 0.4 K/mm3 (0.1-1.0); Monocytes % 13.7 % (1.7-9.3); Neutrophils # 1.6 K/mm3 (1.8-7.8); Neutrophils % 54.7 % (37.0-80.0); Platelet Count 271 K/mm3 (142-424); Red Blood Count 4.76 M/mm3 (4.60-6.20); Red Cell Distribution Width 13.2 % (11.5-17.5); White Blood Count 2.9 K/mm3 (4.8-10.8)
[2021-09-16 18:50] LABS: Chloride 100 mmol/L (98-107); Potassium 4.7 mmoL/L (3.5-5.1); Sodium 141 mmol/L (136-145)
[2021-09-16 18:53] LABS: Alanine Aminotransferase 32 U/L (12-78); Albumin Level 4.8 g/dl (3.5-5.0); Albumin/Globulin Ratio 1.6 (1.1-1.8); Alkaline Phosphatase 89 U/L (38-126); Anion Gap 17.7 mEq/L (5-15); Aspartate Amino Transferase 85 U/L (17-59); Bilirubin,Total 0.3 mg/dl (0.2-1.3); Blood Urea Nitrogen 3 mg/dl (9-20); Calcium 9.6 mg/dl (8.4-10.2); Carbon Dioxide 28 mmol/L (22.0-30.0); Estimated Glomerular Filt Rate 139 ml/min (>60); GFR (African American) 168 ML/MIN (>60); Glucose 93 mg/dl (74-100); Lipase 238 U/L (23-300); Total Protein,Serum 7.8 g/dl (6.3-8.2)
== END ==
PROVIDERS: Visit Provider Internal Medicine Adolescent Medicine
DX: K29.20 Alcoholic gastritis without bleeding (principal)
CPT/HCPCS: 80053; 83690; 85025

== ENCOUNTER 2023-02-13 15:00 | Outpatient (RCR) | payer BC, OTHER, SELFPAY | END 2023-03-17 12:10 | disposition home or self-care (01) | LOC: PT 15:00 | PROVIDERS: PCP Internal Medicine Adolescent Medicine; Visit Provider Orthopaedic Surgery Foot and Ankle Surgery | DX: M21.371 Foot drop, right foot (principal) | CPT/HCPCS: 97010; 97014; 97110; 97112; 97116; 97140; 97163; 97164; 97530; G0283 ==

== ENCOUNTER 2024-09-02 14:00 | Outpatient (RCR) | payer OTHER, SELFPAY | END 2024-10-23 14:05 | disposition home or self-care (01) | LOC: PT 14:00 | PROVIDERS: Visit Provider Orthopaedic Surgery | DX: M79.622 Pain in left upper arm (principal); S42.292A Other displaced fracture of upper end of left humerus, initial encounter for closed fracture | CPT/HCPCS: 97110; 97140; 97163; 97530 ==

== ENCOUNTER 2024-09-12 13:49 | Emergency (ER) | payer OTHER, SELFPAY ==
[2024-09-12 13:49] VITALS: BP 124/80; PULSE 74; RESP 20; TEMP 36.9; O2SAT 98; BMI 22.4
[2024-09-12 14:00] VITALS: BP 112/78; PULSE 86; O2SAT 100
--- NOTE | 2024-09-12 14:00 | ED_ITS ---
<Statement entered by Sheila Crawley DO - 09/12/24 15:46> I was consulted by the EDER, and we discussed the complexity of the problems being addressed. I approved the treatment and management plan for this patient's care in the emergency department, thus performing a substantive portion of the medical decision making. Sheila Crawley DO Discharge Plan Disposition Patient Disposition: Xfer Short-Term Hosp Condition: Good Prescriptions Prescriptions: No Action topiramate 100 MG capsule,sprinkle,ER 24hr 150 mg PO TID Referrals Follow up/Referrals: Ashly Salazar [Primary Care Provider] - See instructions Activity Restrictions/Add. Instructions Additional Instructions/Restrictions: Transfer to [facility] Dr. Mcclain Clinical Impressions Clinical Impression: Closed fracture of neck of left femur Qualifiers: Encounter type: initial encounter Qualified Code(s): S72.002A - Fracture of unspecified part of neck of left femur, initial encounter for closed fracture Stand Alone Forms Stand Alone Forms: Transfer Record - ED Print Language Print Language: [place] Islander Discharge ED Provider: Sheila Crawley General Adult HPI General Chief complaint: Fall Stated complaint: Fall, L hip pain Time Seen by Provider: 09/12/24 13:52 History of Present Illness HPI narrative: Patient presents for evaluation of left hip pain after a fall. Patient tripped over something in his house landing on his right hip. 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 He denies any other injury specifically neck pain back pain headache chest pain shortness of breath fever chills hemoptysis hematochezia melena nausea vomit diarrhea. He did not lose consciousness. He was however not able to ambulate on it afterwards. Related Data Home Medications ?Medication ?Instructions ?Recorded ?Confirmed topiramate 100 mg capsule 150 mg PO TID tremors 09/20/20 02/22/21 sprinkle,extended release 24 hr Allergies Allergy/AdvReac Type Severity Reaction Status Date / Time No Known Allergies Allergy Verified 02/22/21 15:33 [facility] Disclaimer: The information contained in this section may have been updated after the patient was seen, as this information can be updated by other users. Social History Smoking Status: Never smoker second hand exposure: Yes alcohol intake: current alcohol intake frequency: 3 or more drinks per day substance use type: denies use current occupational status: unemployed Travel in the last 8 weeks: None household members: family housing: house current occupation: [employer] current occupational exposures/hazards: No caffeine: Yes Other Medical History Have you received the Flu Vaccine for this season: Yes Have you received the Pneumonia Vaccine: No ROS Obtained: Yes Systems reviewed as appropriate & no additional complaints except as documented Physical Exam General General appearance: alert and in no apparent distress Respiratory Respiratory exam: Present normal lung sounds bilaterally Cardiovascular Cardiovascular exam: Present regular rate Neurological Exam Neurological exam: Present alert, oriented X3 and CN II-XII intact Medical Decision Making Medical Records Medical records reviewed: Yes I reviewed the patient's medical records. Screening: Per USPSTF and CDC recommendations, given the prevalence of disease in our region, it is our hospital?s policy to screen for HIV and viral Hepatitis for all patients aged 18 and over and those with ongoing risk factors. Shad Inquiry Pt receiving controlled substance: No Vital Signs: 09/12/24 13:49 09/12/24 14:00 Temperature 98.4 F Temperature Source Oral Pulse Rate 86 Pulse Rate [Right] 74 Respiratory Rate 20 Blood Pressure 112/78 Blood Pressure [Right Arm] 124/80 Blood Pressure Mean [Right Arm] 94 Blood Pressure Source [Right Arm] Automatic Cuff 02 Sat by Pulse Oximetry 98 100 Oxygen Delivery Method Room Air Lab Data Lab results reviewed: Yes I reviewed the patient's lab results. Lab Results 09/12/24 13:00: WBC 1.9 L*, RBC 4.28 L, Hgb 13.9 L, Hct 42.1, MCV 98.2 H, MCH 32.5 H, MCHC 33.1, RDW 14.3, Plt Count 125 L, MPV 7.9, Neut % (Auto) 58.2, Lymph % (Auto) 27.5, [place] % (Auto) 12.9 H, Eos % (Auto) 0.5, Baso % (Auto) 0.9, Neut # (Auto) 1.1 L, Lymph # (Auto) 0.5 L, [place] # (Auto) 0.2, Eos # (Auto) 0.0, Baso # (Auto) 0.0, PT 10.9, INR 0.97, Sodium 134 L, Potassium 4.1, Chloride 99, Carbon Dioxide 17 L, Anion Gap 22.1 H, Creatinine 0.60 L, Estimated Creat Clear 208, Estimated GFR 162, Est GFR ( Amer) 196, Glucose 100, Calcium 8.4, Total Bilirubin 0.6, AST 303 H*, ALT 110 H, Alkaline Phosphatase 129 H, Total Protein 7.0, Albumin 3.9 09/12/24 13:00 09/12/24 13:00 Orders (Tests/Meds): ED MEDICATIONS Generic Name Dose Route Start Last Admin Trade Name Freq PRN Reason Stop Dose Admin Sodium Chloride 1,000 mls @ 999 mls/hr 09/12/24 15:00 09/12/24 15:09 Sod Chlor 0.9% 1000ml Bag IV 09/12/24 16:00 999 mls/hr .Q1H1M ONE Administration Discontinued Medications Generic Name Dose Route Start Last Admin Trade Name Freq PRN Reason Stop Dose Admin Acetaminophen 1,000 mg 09/12/24 15:00 09/12/24 15:09 Acetaminophen 1,000mg/100ml Vial IV 09/12/24 15:01 1,000 mg ONCE ONE Administration Hydromorphone HCl 0.5 mg 09/12/24 15:00 09/12/24 15:09 Hydromorphone 2mg/Ml Syringe IV 09/12/24 15:01 0.5 mg ONCE ONE Administration Ketorolac Tromethamine 15 mg 09/12/24 14:10 09/12/24 14:30 Ketorolac 30mg/Ml Vial IV 09/12/24 14:11 15 mg ONCE ONE Administration Ondansetron HCl 4 mg 09/12/24 15:00 09/12/24 15:24 Ondansetron 4mg/2ml Vial IV 09/12/24 15:01 4 mg ONCE ONE Administration Oxycodone HCl 5 mg 09/12/24 14:09 09/12/24 14:31 Oxycodone 5mg Immediate Release Tablet PO 09/12/24 14:10 5 mg ONCE ONE Administration ORDERS Category Date Time Status XR femur LT 1V Stat Exams 09/12/24 14:08 Taken XR hip LT 2-3V w/pelvis Stat Exams 09/12/24 14:08 Taken CBC w/Auto Diff [Complete Blood Count Auto Diff] Stat Lab 09/12/24 13:00 Completed CMP [Comprehensive Metabolic Panel] Stat Lab 09/12/24 13:00 Results HIV (1&2) Antibody Rapid Stat Lab 09/12/24 13:00 Received Hep C Ab with Reflex to RNA Stat Lab 09/12/24 13:00 Received INR [Prothrombin Time INR] Stat Lab 09/12/24 13:00 Completed Magnesium Stat Lab 09/12/24 13:00 Received Phosphorous Stat Lab 09/12/24 13:00 Received Rapid PCR Covid and Flu A/B Stat Lab 09/12/24 15:16 Received UA [Urinalysis and Microscopic] Stat Lab 09/12/24 15:01 Ordered UDS [Drug Screen,Urine] Stat Lab 09/12/24 15:00 Ordered Medical Decision Narrative: In summary patient is a 29-year-old male who presents to the emergency department for evaluation of hip pain after fall. Patient is hemodynamically stable upon arrival, afebrile. Physical exam is remarkable for tenderness about the left hip but there is no obvious bony deformity or visible signs of trauma including ecchymosis edema swelling skin abrasions. He is neurovascularly intact distally. Patient has positive DP and PT. Differential diagnosis includes contusion versus fracture. Initial workup will be conducted with plain film x-rays. Initial interventions include Toradol and oxycodone as patient had Tylenol at 12. Initial workup reviewed by me and my formal interpretation of his x-ray shows a femoral neck fracture. Given that I attempted to contact our orthopedist however he is not on-call today. Thus I had an interactive discussion with the [facility] transfer center about patient management and he has been graciously accepted by Dr. Mcclain to the [facility] ER for further evaluation and care. Critical Care Critical Care Time Critical Care Time: No
--- NOTE | 2024-09-12 14:08 | XR_ITS ---
FINAL REPORT CLINICAL HISTORY: FALL, LT HIP PAIN FINDINGS: Left hip Three views were obtained. There is an intertrochanteric fracture of the proximal left femur. IMPRESSION: Fracture as above. Reviewed, Interpreted and Dictated by Guy Miranda III, MD Transcribed by Isabelle Newman Authenticated and [facility]
--- NOTE | 2024-09-12 14:08 | XR_ITS ---
FINAL REPORT CLINICAL HISTORY: FALL, LT HIP PAIN FINDINGS: Left femur Two views were obtained. There is no fracture or dislocation. There are mild degenerative changes of the knee. No soft tissue abnormality is identified. IMPRESSION: No acute process. Reviewed, Interpreted and Dictated by Guy Miranda III, MD Transcribed by Isabelle Newman Authenticated and [facility]
--- NOTE | 2024-09-12 14:19 | PC.NURSE ---
XR AT BEDSIDE
[2024-09-12 14:30] VITALS: BP 121/80; PULSE 88; O2SAT 99
[2024-09-12] MEDS: KETOROLAC 30MG/ML VIAL 15 MG IV (14:30)
[2024-09-12] MEDS: OXYCODONE 5MG IMMEDIATE RELEASE TABLET 5 MG PO (14:31)
--- NOTE | 2024-09-12 14:58 | PC.NURSE ---
ROUNDED ON PT, CONTINUES TO REPORT PAIN, PROVIDER NOTIFIED
[2024-09-12 15:00] VITALS: BP 107/73; PULSE 70; O2SAT 99
--- NOTE | 2024-09-12 15:04 | PC.NURSE ---
VIVIAN SPEAKING WITH DR DOWELL AT
[2024-09-12] MEDS: ACETAMINOPHEN 1,000MG/100ML VIAL 1000 MG IV (15:09)
[2024-09-12] MEDS: HYDROMORPHONE 2MG/ML SYRINGE 0.5 MG IV (15:09)
[2024-09-12] MEDS: 0.9 % SODIUM CHLORIDE 1000ML 1,000 ML 999 ML IV (15:09)
[2024-09-12 15:10] LABS: Chloride 99 mmol/L (98-107)
[2024-09-12 15:11] LABS: Basophils % 0.9 % (0.1-2.0); Eosinophils % 0.5 % (0.1-12.0); Hematocrit 42.1 % (42.0-52.0); Hemoglobin 13.9 g/dL (14.1-18.0); Lymphocytes # 0.5 K/mm3 (0.7-4.5); Lymphocytes % 27.5 % (10-50); Mean Corpuscular HGB Conc 33.1 g/dL (31.8-35.4); Mean Corpuscular Hemoglobin 32.5 pg (27.0-31.2); Mean Corpuscular Volume 98.2 fl (80-94); Mean Platelet Volume 7.9 fl (7.4-10.4); Monocytes # 0.2 K/mm3 (0.1-1.0); Monocytes % 12.9 % (1.7-9.3); Neutrophils # 1.1 K/mm3 (1.8-7.8); Neutrophils % 58.2 % (37.0-80.0); Platelet Count 125 K/mm3 (142-424); Potassium 4.1 mmoL/L (3.5-5.1); Red Blood Count 4.28 M/mm3 (4.60-6.20); Red Cell Distribution Width 14.3 % (11.5-17.5); Sodium 134 mmol/L (136-145); White Blood Count 1.9 K/mm3 (4.8-10.8)
[2024-09-12 15:13] LABS: Alanine Aminotransferase 110 U/L (12-78); Aspartate Amino Transferase 303 U/L (17-59); Carbon Dioxide 17 mmol/L (22.0-30.0); Creatinine Clearance Estimated 208 mL/min (50-200); Estimated Glomerular Filt Rate 162 ml/min (>60); GFR (African American) 196 ML/MIN (>60)
[2024-09-12 15:14] LABS: Alkaline Phosphatase 129 U/L (38-126); Anion Gap 22.1 mEq/L (5-15); Bilirubin,Total 0.6 mg/dl (0.2-1.3); Calcium 8.4 mg/dl (8.4-10.2); Glucose 100 mg/dl (74-100)
[2024-09-12 15:17] LABS: INR 0.97 (0.9-1.1); Prothrombin Time 10.9 seconds (10.1-12.5)
[2024-09-12 15:19] LABS: Coronavirus 19, PCR Not Detected (NotDetected); Influenza A, PCR Not Detected (NotDetected); Influenza B, PCR Not Detected (NotDetected)
--- NOTE | 2024-09-12 15:22 | PC.NURSE ---
Called EMS for transport to [facility]
--- NOTE | 2024-09-12 15:22 | PC.NURSE ---
EKG not obtained due to the nuero stimulator not being able to be turned off at this time.
[2024-09-12] MEDS: ONDANSETRON 4MG/2ML VIAL 4 MG IV (15:24)
--- NOTE | 2024-09-12 15:24 | PC.NURSE ---
[facility] NOTIFIED OF TRANSFER TO [facility]
[2024-09-12 15:30] VITALS: BP 112/76; PULSE 75; O2SAT 96
--- NOTE | 2024-09-12 15:30 | PC.NURSE ---
Called report to Daisha SAMUELS RN and answered all questions
[2024-09-12 15:45] VITALS: BP 112/76; PULSE 78; RESP 16; TEMP 36.8; O2SAT 98
[2024-09-12 16:00] LABS: Blood Urea Nitrogen < 2 mg/dl (9-20)
[2024-09-12 16:26] LABS: Albumin Level 3.9 g/dl (3.5-5.0); Albumin/Globulin Ratio 1.3 (1.1-1.8); Globulin 3.1 g/dL (1.3-3.2)
[2024-09-12 16:45] LABS: Magnesium 1.8 mg/dl (1.6-2.3); Phosphorous 3.1 mg/dl (2.5-4.5)
[2024-09-12 19:01] LABS: HIV (1&2) Antibody Rapid NONREACTIVE (NONREACTIVE)
[2024-09-14 08:22] LABS: HCV Ab Non Reactive (Non Reactive)
== END 2024-09-12 15:57 | disposition short-term general hospital (02) ==
PROVIDERS: Physician Assistant; Emergency Provider Emergency Medicine; PCP Nurse Practitioner Family
DX: S72.002A Fracture of unspecified part of neck of left femur, initial encounter for closed fracture (principal); Z11.52 Encounter for screening for COVID-19; W19.XXXA Unspecified fall, initial encounter
CPT/HCPCS: 73502; 73551; 80053; 83735; 84100; 85025; 85610; 86803; 87389; 87636; 96361; 96374; 96375; 99284; J0131; J1171; J1885; J2405; J7030

== ENCOUNTER 2024-11-04 13:48 | Outpatient (RCR) | payer OTHER, SELFPAY | END 2024-11-04 23:59 | disposition home or self-care (01) | LOC: PT 13:48 | PROVIDERS: Visit Provider Nurse Practitioner Family | DX: M25.552 Pain in left hip (principal); S72.002A Fracture of unspecified part of neck of left femur, initial encounter for closed fracture | CPT/HCPCS: 97163 ==

== ENCOUNTER 2024-11-20 13:43 | Outpatient (RCR) | payer OTHER, SELFPAY | END 2024-11-20 23:59 | disposition home or self-care (01) | LOC: PT 13:43 | PROVIDERS: Visit Provider Nurse Practitioner Family | DX: S72.002D Fracture of unspecified part of neck of left femur, subsequent encounter for closed fracture with routine healing (principal) | CPT/HCPCS: 97110 ==

== ENCOUNTER 2024-12-31 14:00 | Outpatient (RCR) | payer OTHER, SELFPAY | END 2024-12-31 23:59 | disposition home or self-care (01) | LOC: PT 14:00 | PROVIDERS: PCP Nurse Practitioner Family; Visit Provider Orthopaedic Surgery Orthopaedic Trauma | DX: M25.552 Pain in left hip (principal); S72.412A Displaced unspecified condyle fracture of lower end of left femur, initial encounter for closed fracture | CPT/HCPCS: 97110; 97163; 97530 ==

== ENCOUNTER 2025-01-28 14:00 | Outpatient (RCR) | payer OTHER, SELFPAY | END 2025-01-28 23:59 | disposition home or self-care (01) | LOC: PT 14:00 | PROVIDERS: PCP Nurse Practitioner Family; Visit Provider Orthopaedic Surgery Orthopaedic Trauma | DX: S72.412A Displaced unspecified condyle fracture of lower end of left femur, initial encounter for closed fracture (principal) | CPT/HCPCS: 97110; 97164; 97530 ==

== ENCOUNTER 2025-06-18 08:20 | Day surgery (SDC) | payer OTHER, SELFPAY ==
[2025-06-03 13:35] VITALS: BMI 15.8
--- NOTE | 2025-06-17 14:04 | EXP.HP ---
History of Present Illness *Admission Date: 06/17/25 *Reason for visit:: Dysphagia *History of present illness: Mr. Garcias is a 30-year-old gentleman who is here for dysphagia. He has lost about 50 pounds over the last 5 to 6 years and this occurs primarily with solid foods such as breads and meats. He has no heartburn or reflux. His mother had a recurrent Schatzki's ring requiring dilation. The examination is deemed medically necessary for diagnostic/therapeutic upper endoscopy. The patient has been seen, interviewed and examined prior to the procedure by both myself and the anesthesia provider. [facility] Disclaimer: The information contained in this section may have been updated after the patient was seen, as this information can be updated by other users. Medical History Elevated LFTs Jeannine's syndrome Essential tremor Anemia Surgical History Hx of fasciotomy History of shoulder surgery History of neck surgery History of hip surgery History of foot surgery History of eye surgery S/P deep brain stimulator placement H/O blepharoplasty Family History Other Cancer Hypertension Stroke Social History Smoking Status: Current every day smoker tobacco type: e-cigarettes second hand exposure: Yes alcohol intake: current alcohol intake frequency: 3 or more drinks per day substance use type: denies use current occupational status: employed Travel in the last 8 weeks?: None household members: family housing: house current occupation: farming current occupational exposures/hazards: No caffeine: Yes Have you lived/traveled outside [place] in past 30 days?: No Contact w/someone who lives/traveled outside [place] past 30 days?: No Exposure to someone with infectious disease in past 14 days?: No Do you have a fever (greater than 100.4 F or 38 C)?: No Have you tested positive for COVID-19?: No Exposed to someone with COVID-19 in past 14 days?: No Do you have a sore throat?: No Do you have a cough?: No Do you have any weakness?: No Do you have any diarrhea?: No Are you experiencing any unusual bleeding?: No Do you have any muscle aches/pain?: No Do you have any abdominal pain?: No Are you experiencing loss of taste or smell?: No Other Medical History Have you received the Flu Vaccine for this season: Yes Have you received the Pneumonia Vaccine: No Review of Systems Review of Systems Review of systems (narrative): Negative *Cardiovascular Comments: Negative *Gastrointestinal Comments: Negative *Genitourinary Comments: Negative *Musculoskeletal Comments: Negative *Neurologic Comments: Negative Meds Home Medications and Allergies Home Medications ?Medication ?Instructions ?Recorded ?Confirmed ?Type calcium amino acid chelate 200 mg PO DAILY 03/26/25 06/17/25 History ergocalciferol (vitamin D2) 1,250 1,250 mcg PO WEEKLY 03/26/25 06/17/25 History mcg (50,000 unit) capsule (Vitamin D2) acetaminophen 500 mg tablet 500 mg PO Q6H PRN Mild Pain (Scale 06/17/25 06/17/25 History (Tylenol Extra Strength) Score 1-4) New Prescriptions to Start Prescriptions: Allergies Allergy/AdvReac Type Severity Reaction Status Date / Time No Known Allergies Allergy Verified 06/17/25 14:49 Exam *Routine HEENT Exam Head: Present normocephalic Eye: Present EOMI and PERRL ENT: Present mucous membranes moist *Routine Neck Exam Neck: Present supple *Routine Respiratory Exam Respiratory: Present CTA bilaterally *Routine Cardiovascular Exam Cardiovascular: Present RRR *Routine Abdominal Exam Abdominal: Present soft and normoactive bowel sounds; Absent tenderness *Routine Rectal Exam Rectal:: deferred *Routine Genitalia Exam Genitalia:: deferred *Routine Extremities Exam Extremities: Absent cyanosis, clubbing or edema *Routine Skin Exam Skin: Present warm; Absent rash *Routine Neurological Exam Neurological: Present alert and oriented X3 Assessment and Plan *Assessment and plan (1) Dysphagia: Status: Acute Category: Medical Code(s): R13.10 - Dysphagia, unspecified (2) Abnormal weight loss: Status: Acute Category: Medical Code(s): R63.4 - Abnormal weight loss Plan A/P: 1. Dysphagia/abnormal weight loss is the preprocedural diagnosis. The patient will be anesthetized/sedated using MAC sedation. The patient has been seen and examined. Cardiac and lung assessment prior to the examination is stable. Proceed with planned diagnostic/therapeutic upper endoscopy.
[2025-06-17 14:52] VITALS: BMI 15.8
[2025-06-18] MEDS: LACTATED RINGERS 1000ML 1,000 ML 50 ML IV (09:27)
[2025-06-18 09:28] VITALS: BP 144/90; PULSE 97; RESP 18; TEMP 36.6; O2SAT 97
--- NOTE | 2025-06-18 09:46 | EXP.ANES.CKL ---
[facility] Disclaimer: The information contained in this section may have been updated after the patient was seen, as this information can be updated by other users. Medical History Elevated LFTs Jeannine's syndrome Essential tremor Anemia Surgical History Hx of fasciotomy History of shoulder surgery History of neck surgery History of hip surgery History of foot surgery History of eye surgery S/P deep brain stimulator placement H/O blepharoplasty Family History Other Cancer Hypertension Stroke Social History Smoking Status: Current every day smoker tobacco type: e-cigarettes second hand exposure: Yes alcohol intake: current alcohol intake frequency: 3 or more drinks per day substance use type: denies use current occupational status: employed Travel in the last 8 weeks?: None household members: family housing: house current occupation: farming current occupational exposures/hazards: No caffeine: Yes Have you lived/traveled outside [place] in past 30 days?: No Contact w/someone who lives/traveled outside [place] past 30 days?: No Exposure to someone with infectious disease in past 14 days?: No Do you have a fever (greater than 100.4 F or 38 C)?: No Have you tested positive for COVID-19?: No Exposed to someone with COVID-19 in past 14 days?: No Do you have a sore throat?: No Do you have a cough?: No Do you have any weakness?: No Do you have any diarrhea?: No Are you experiencing any unusual bleeding?: No Do you have any muscle aches/pain?: No Do you have any abdominal pain?: No Are you experiencing loss of taste or smell?: No [facility] Anesthesia Checklist Patient Identification Patient Identification: Arm Band and Verbal (Name & ) Structural Data Admitted From: Home Planned Operative Procedure/s: EGD Consent for Planned Operative Procedure(s) Verified: Yes Verified Documents: Surgical Consent NPO Status Verified Time NPO: 00:00 Additional verifications Anesthesia Reactions: No Hx Blood Transfusions: No Blood Transfusion Reaction: No Airway Assessment Mallampati Score:: Class II C-Spine Mobility Assessed: Yes TMJ Mobility Assessed: Yes Dentition: Good Dentition Neurological Assessment Level of Consciousness: Awake, Alert and Appropriate Hx Seizures: No Numbness or tingling in extremities: No Anesthesia Plan Anesthesia Risk discussed: Yes Anesthesia Plan: Verified ASA Class: II Anesthesia Type: MAC
--- NOTE | 2025-06-18 09:49 | P.PCN_ITS ---
[facility] Procedure Note Date: 06/18/25 Time: 10:11 Procedure Note:: Upper Endoscopy Procedure Report: Esophagogastroduodenoscopy with cold biopsies and TTS balloon dilation Endoscopost: Vinnie Steel II, MD Referring Physician: DRAGAN Sellers Date of Procedure: June 18, 2025 Equipment: Olympus GIF-1100 standard upper endoscope Sedation: MAC sedation Indications: Mr. Garcias is a 30-year-old gentleman who is here for dysphagia. He has lost about 50 pounds over the last 5 to 6 years and this occurs primarily with solid foods such as breads and meats. This does not occur with liquids. He has no heartburn or reflux. His mother had a recurrent Schatzki's ring requiring dilation. The patient has never had an upper endoscopy. He reports no seasonal or perennial allergies. Procedure: Prior to the procedure, a history and physical exam was performed, and patient's medications and allergies were reviewed. The risks, benefits and alternatives of the sedation and procedure were discussed with the patient. All questions were answered and informed consent was obtained. The patient was brought to the procedure room. Patient identification and proposed procedure were verified by the physician and the nurse. The patient was placed in a left lateral decubitus position and the scope was passed under direct vision. Throughout the procedure, the patient's blood pressure, pulse, and oxygen saturations were monitored continuously. The upper GI endoscopy was accomplished without difficulty. The patient tolerated the procedure well. Findings: The scope was passed directly into the upper esophagus and advanced to the third and fourth portion of the duodenum. A cold biopsy was taken from the second portion of the duodenum for the disaccharidase assay. The post bulbar duodenum, ampulla and duodenal bulb were normal with normal mucosa and conniventes. The scope was withdrawn through a normal duodenal bulb and pylorus into the stomach. There was some linear reactive gastropathy of the antrum. The body and fundus of the stomach were normal. A cold biopsy was taken from the antrum for histology. Upon retroflexion there was a small 2 cm hiatal hernia. The scope was then withdrawn into the esophagus. There was no evidence of reflux esophagitis, Jean-Baptiste's or Schatzki's ring. There was no evidence of corrugation or furrowing. There was some mild mucosal exudate and biopsies were taken from the distal and proximal esophagus to rule out eosinophilic es ophagitis. There were strong tertiary contractions and evidence of moderate esophageal dysmotility. The entire esophagus was dilated to 60 Pan[place]ian/20 mm with a TTS hydrostatic balloon. There was mild resistance at the cricopharyngeus. The remainder of the esophageal mucosa was normal. Impression: 1. Moderate esophageal dysmotility, cricopharyngeal spasm and small 2 cm hiatal hernia 2. Linear reactive gastropathy of antrum Plan: I will follow-up the biopsies and disaccharidase assay. We will discuss additional treatment options. If his swallowing difficulty persist, would consider barium swallow and esophageal manometry.
[2025-06-18 10:12] VITALS: BP 100/78; PULSE 105; RESP 16; TEMP 36.4; O2SAT 100
[2025-06-18 10:22] VITALS: BP 113/82; PULSE 83; RESP 16; O2SAT 100
[2025-06-18 10:32] VITALS: BP 108/70; PULSE 78; RESP 16; O2SAT 100
[2025-06-18 10:42] VITALS: BP 118/76; PULSE 77; RESP 16; O2SAT 100
[2025-06-23 15:52] LABS: Interpretation Notes (.); Lactase 5.96 (>/= 14.0); Maltase 112.71 (>/= 110.0); Palatinase 9.04 (>/= 8.5); Reference Notes (.); Sucrase 27.31 (>/= 25.0)
== END 2025-06-18 10:51 | disposition home or self-care (01) ==
PROVIDERS: PCP Nurse Practitioner Family; Visit Provider Internal Medicine Gastroenterology
PROC: 0DJ08ZZ Inspection of Upper Intestinal Tract, Via Natural or Artificial Opening Endoscopic (ICD-10-PCS; CPT 43239; principal; 2025-06-18 10:00)
DX: K44.9 Diaphragmatic hernia without obstruction or gangrene (principal); K31.9 Disease of stomach and duodenum, unspecified
CPT/HCPCS: 43239; 43249; 82657; C1726; J2003; J2704; J7120